=== PATIENT | male | born 1965 | race Caucasian/White ===

== ENCOUNTER 2019-07-27 12:51 | Emergency (ER) | payer OTHER ==
[2019-07-27 13:08] VITALS: BP 114/73; PULSE 82; TEMP 98; BMI 32.5
[2019-07-27 15:56] LABS: BASO % 0.5 % (0-2.0); EOS % 1.7 % (0-4.5); HEMOGLOBIN 11.1 GM/dL (11.7-16.9); LYMPH % 13.5 % (8-40); MCH 29.8 pg (25.7-33.7); MCHC 33.6 g/dl (32.0-35.9); MEAN CELL VOLUME 88.8 fl (80-96); MEAN PLT VOLUME 8.1 fl (7.5-11.1); MONO % 8.4 % (3.8-10.2); NEUT % 75.9 % (42.8-82.8); PLATELET COUNT 224 K/MM3 (134-434); RBC 3.71 M/mm3 (4.00-5.60); RDW 12.9 % (11.9-15.9); WHITE BLOOD COUNT 9.8 K/mm3 (4.0-10.0)
[2019-07-27 16:21] LABS: ALBUMIN 3.3 g/dl (3.4-5.0); BILIRUBIN,TOTAL 0.4 mg/dL (0.2-1); BLOOD UREA NITROGEN 24.9 mg/dL (7-18); CALCIUM 8.7 mg/dL (8.5-10.1); POTASSIUM 3.8 mmol/L (3.5-5.1); TOT PROT 6.6 g/dl (6.4-8.2)
== END 2019-07-27 13:15 | disposition left against medical advice (07) ==
LOC: JER 12:51
DX: Z53.21 Procedure and treatment not carried out due to patient leaving prior to being seen by health care provider (principal)
CPT/HCPCS: 36415; 80053; 83605; 85025; 87040; 99281-25; G0463-25

== ENCOUNTER 2019-12-03 07:16 | Day surgery (SDC) | payer OTHER ==
[2019-12-02 15:51] VITALS: BMI 33.6
[2019-12-03] MEDS ORDERED: HEPARIN NA (PORCINE) 5,000 UNITS/ML 1ML VIAL ONE (08:41)
[2019-12-03] MEDS ORDERED: LIDOCAINE HCL 1%, 10 MG/ML (20ML VIAL) ONE (08:42)
[2019-12-03] MEDS ORDERED: MIDAZOLAM HCL 2 MG/2 ML SINGLE DOSE VIAL ONE ×2 (08:58)
[2019-12-03] MEDS ORDERED: PROPOFOL 20 ML ONE (08:58)
[2019-12-03] MEDS ORDERED: SUCCINYLCHOLINE CHLORIDE 200 MG/10 ML SYRINGE ONE (08:58)
--- NOTE | 2019-12-03 09:25 | HP ---
Admitting History and Physical - Admission Chief Complaint: Right lower extremity claudication less than two blocks Limitations to Obtaining History: No Limitations - Advance Directives Advance Directives: Yes: Living Will, Health Care Proxy - Smoking History Smoking history: Current every day smoker Have you smoked in the past 12 months: Yes Aproximately how many cigarettes per day: 20 - Alcohol/Substance Use Hx Alcohol Use: No Home Medications - Allergies Allergies/Adverse Reactions: Allergies Allergy/AdvReac Type Severity Reaction Status Date / Time No Known Allergies Allergy Verified 12/03/19 08:07 - Home Medications Home Medications: Ambulatory Orders Amlodipine Besylate 1 tab PO DAILY 11/23/19 Aspirin [ASA -] 81 mg PO DAILY 11/23/19 Atenolol [Tenormin -] 50 mg PO DAILY 11/23/19 Atorvastatin Ca [Lipitor] 80 mg PO DAILY 11/23/19 Diazepam [Valium] 10 mg PO Q4H 11/23/19 Dulaglutide [Trulicity] 0.5 ml SQ WEEKLY 11/23/19 Duloxetine HCl [Cymbalta -] 90 mg PO DAILY 11/23/19 Furosemide [Lasix -] 20 mg PO DAILY PRN 11/23/19 Insulin Degludec [Tresiba Flextouch U-200] 26 unit SQ DAILY 11/23/19 Lisinopril/Hydrochlorothiazide [Lisinopril-Hctz 20-25 mg Tab] 1 tab PO DAILY Morphine Sulfate 10 mg PO BID 11/23/19 Oxycodone HCl/Acetaminophen [Percocet 5-325 mg Tablet] 1 tab PO Q6H 11/23/19 Potassium Chloride 1 tab PO DAILY 11/23/19 Tadalafil [Cialis] 20 mg PO HS 11/23/19 Zolpidem Tartrate 10 mg PO HS PRN 11/23/19 metFORMIN HCL [Metformin HCl ER] 2 tab PO BID 11/23/19 Review of Systems - Review of Systems Constitutional: reports: No Symptoms Eyes: reports: No Symptoms HENT: reports: No Symptoms Neck: reports: No Symptoms Cardiovascular: reports: No Symptoms Respiratory: reports: No Symptoms Gastrointestinal: reports: No Symptoms Genitourinary: reports: No Symptoms Musculoskeletal: reports: No Symptoms Integumentary: reports: No Symptoms Neurological: reports: No Symptoms Endocrine: reports: No Symptoms Hematology/Lymphatic: reports: No Symptoms Psychiatric: reports: No Symptoms Physical Examination Vital Signs: Vital Signs Temperature 98.0 F 12/03/19 07:48 Pulse Rate 70 12/03/19 07:48 Respiratory Rate 16 12/03/19 07:48 Blood Pressure 123/66 12/03/19 07:48 O2 Sat by Pulse Oximetry (%) 100 12/03/19 07:48 Constitutional: Yes: Well Nourished, No Distress, Calm Eyes: Yes: WNL, Conjunctiva Clear, EOM Intact HENT: Yes: WNL, Atraumatic, Normocephalic Neck: Yes: WNL, Supple, Trachea Midline Cardiovascular: Yes: WNL, Regular Rate and Rhythm Respiratory: Yes: WNL, Regular, CTA Bilaterally Gastrointestinal: Yes: WNL, Normal Bowel Sounds Musculoskeletal: Yes: WNL Extremities: Yes: WNL Edema: No Peripheral Pulses WNL: No Integumentary: Yes: WNL Neurological: Yes: WNL, Alert, Oriented ...Motor Strength: WNL Psychiatric: Yes: WNL Problem List - Problems (1) Claudication of right lower extremity Assessment/Plan: for angiogram today Code(s): I73.9 - PERIPHERAL VASCULAR DISEASE, UNSPECIFIED
[2019-12-03] MEDS ORDERED: ceFAZolin SODIUM 1 GM VIAL IVPB ONE (09:40)
[2019-12-03] MEDS ORDERED: LIDOCAINE HCL 1%, 10 MG/ML (20ML VIAL) INF ONE ×2 (09:43)
--- NOTE | 2019-12-03 10:24 | OP ---
Operative Note - Note: Operative Date: 12/03/19 Pre-Operative Diagnosis: RLE claudication Operation: Aortogram, RLE angiogram, SFA atherectomy, angioplasty, stent placement. Findings: SFA 95% stenosis Post-Operative Diagnosis: Same as Pre-op Surgeon: Myke Pepe Anesthesia: Fractional Estimated Blood Loss (mls): 50 Operative Report Dictated: Yes
[2019-12-03] MEDS ORDERED: CLOPIDOGREL BISULFATE 75 MG TABLET (FP) PO ONE ×2 (10:26→10:47)
[2019-12-03] MEDS ORDERED: PROMETHAZINE HCL 25 MG/1 ML VIAL IVPUSH PRN (10:33)
[2019-12-03] MEDS ORDERED: ONDANSETRON 4 MG/2 ML VIAL IVPUSH PRN (10:33)
[2019-12-03] MEDS ORDERED: oxyCODONE HCL 5 MG TABLET PO PRN (10:33)
[2019-12-03] MEDS ORDERED: LACTATED RINGERS SOLUTION 1,000 ML IV SCH (10:45)
[2019-12-03 11:58] VITALS: TEMP 97.8
[2019-12-03 12:55] VITALS: BP 132/70; PULSE 72
--- NOTE | 2019-12-16 17:20 | OP ---
DATE OF OPERATION: 12/03/2019 PREOPERATIVE DIAGNOSIS: Right lower extremity claudication. POSTOPERATIVE DIAGNOSIS: Right lower extremity claudication. PROCEDURE PERFORMED: Aortogram, right lower extremity angiogram, superficial femoral artery atherectomy, angioplasty and stent placement. FINDINGS: SFA 95% stenosis. SURGEON: Myke Carl DO ANESTHESIA: Fractional. BLOOD LOSS: 50 mL. INDICATIONS: Patient is a 54-year-old male who has right lower extremity claudication, less than 1 block. Preoperative ultrasound showed that he has severe disease in his distal SFA, almost nearly occluded. DESCRIPTION OF PROCEDURE: The patient had medical and cardiology clearance performed, and the patient then came in to Ambulatory Surgery. The patient was consented for the procedure, understanding all risks, benefits and alternatives. He was then taken to the operating room. Once in the operating room, the patient was laid on the operating table in the supine manner. The areas of the left and right groin were prepped and draped in a sterile surgical manner. We then injected 10 mL of lidocaine 1% over the left common femoral artery. We then took our Micropuncture needle up to the level of the common femoral artery. Micropuncture wire was inserted. Micropuncture sheath was inserted and an additional 5-Bhutanese sheath was inserted. We then placed a 0.035 floppy guidewire up into the aorta, followed by an Omni Flush catheter. We then shot an aortogram via hand injection, showing that aorta and iliac arteries were without disease. We then used an 0.035 floppy guidewire and brought it up and over to the right common femoral artery, and our Omni Flush catheter followed. We then shot a right lower extremity angiogram, showing that the common femoral artery, the profunda, and proximal and mid SFA were patent, but the distal SFA had a severe 95% stenosis. The popliteal artery was patent and the patient had 2-vessel runoff going into the foot in the form of AT and PT. At this point we placed a 0.035 stiff guidewire into the SFA. We removed the Omni Flush catheter. We went head and placed a 6 x 45 crossover sheath and 5000 units of IV heparin was administered to the patient, We then used a 0.035 floppy guidewire and brought it down to the stenosis. We were able to cross the lesion using a Quick-Cross catheter. We then exchanged the wire for a ViperWire. We then used CSI orbital atherectomy device and performed orbital atherectomy across our SFA stenosis. Completion angiogram showed that the SFA was now patent, but there was still severe stenosis. We then went ahead and used a 5 x 4 Ultraverse balloon and angioplasty of the SFA was performed. Completion angiogram now showed that the SFA was patent, but there was still a flow-limiting lesion. We went ahead and placed a 6 x 4 LifeStent in the area and ballooned it in place using a 6 x 4 Ultraverse balloon. Completion angiogram now showed that the SFA was patent. There was good brisk flow that was not flow-limiting, and there was good flow all the way into the foot. At this point we brought our sheath up and over. A StarClose device was successfully deployed in the left common femoral artery. Pressure was held for 5 minutes. Afterwards there was no bleeding. The area was wet and dried, and Dermabond was placed. The patient tolerated the procedure with no complication. The patient was transferred to the PACU in stable condition. MYKE CARL DO [id number]
== END 2019-12-03 12:15 | disposition home or self-care (01) ==
LOC: JASU-SURG 07:16
PROVIDERS: ATTEND Surgery Vascular Surgery
PROC: 047K3DZ Dilation of Right Femoral Artery with Intraluminal Device, Percutaneous Approach (ICD-10-PCS; principal; 2019-12-03 09:00)
DX: I70.211 Atherosclerosis of native arteries of extremities with intermittent claudication, right leg (principal)
CPT/HCPCS: 37227; C1877; 76000-TC-FY; 82962; 94760; J1644

== ENCOUNTER 2020-05-19 19:20 | Inpatient (IN) | payer OTHER ==
--- NOTE | 2020-05-19 19:29 | PDOC ---
Rapid Medical Evaluation Time Seen by Provider: 05/19/20 19:27 Medical Evaluation: Allergies Allergy/AdvReac Type Severity Reaction Status Date / Time No Known Allergies Allergy Verified 04/28/20 10:42 05/19/20 19:27 I have performed a brief in-person evaluation of this patient. CC: sent by podiatry for admission for abscess/cellulitis PE: deferred to ED provider- pt request Orders: labs, ekg, cxr Patient will proceed to ED for further evaluation. Discharge Disposition - Diagnosis Wound of foot - Referrals - Patient Instructions - Post Discharge Activity
[2020-05-19 19:36] VITALS: BMI 34.8
--- NOTE | 2020-05-19 20:35 | PDOC ---
History of Present Illness - General Chief Complaint: Wound Stated Complaint: WOUND ON RT FOOT Time Seen by Provider: 05/19/20 19:27 - History of Present Illness Initial Comments: 05/19/20 20:34 HPI: This is a 55 y/o male with a PMH of DM, PAD s/p stent, HTN, diabetic neuropathy, doing wound care once a week who was sent in by podiatry Dr. Spencer for wound infection/cellulitis on right foot. He reports that he has been having increased pain, redness, and discharge for the past two days. He saw wound-care today who recommended admission. He denies any systemic symptoms. Denies fever, chills, nausea, or vomiting. ROS: GENERAL/CONSTITUTIONAL: No fever/chills. No weakness. HEAD, EYES, EARS, NOSE AND THROAT: No change in vision. No sore throat. CARDIOVASCULAR: No chest pain or shortness of breath. RESPIRATORY: No cough, wheezing, or hemoptysis. GASTROINTESTINAL: No nausea, vomiting, diarrhea or constipation. GENITOURINARY: No dysuria, frequency, MUSCULOSKELETAL: No joint or muscle swelling or pain. No neck or back pain. SKIN: Yes wound and erythema on plantar surface of right foot NEUROLOGIC: No headache, loss of consciousness ENDOCRINE: No increased thirst. No abnormal weight change. HEMATOLOGIC/LYMPHATIC: No anemia, easy bleeding, or history of blood clots. ALLERGIC/IMMUNOLOGIC: No hives or skin allergy. PMH: NIDDM, HTN, PAD s/p stent, PAD, chronic diabetic ulcers Social Hx: 1ppd x 30 yrs, Denies Etoh, Medical marijuana Meds: See nurse note Allergies: Denied PCP: Dr. Murillo Vasc: Dr. Pepe PE: GENERAL: Awake, alert, and fully oriented, in no acute distress. Patient sitting comfortably in bed with girlfriend in room. Conversing normally. HEAD: No signs of trauma EYES: PERRLA, EOMI ENT: Hearing grossly normal. Moist mucosa NECK: Normal ROM, supple LUNGS: Breath sounds equal, wheezing bilaterally. HEART: Regular rate and rhythm, normal S1 and S2 ABDOMEN: Soft, nontender, normoactive bowel sounds. No guarding, no rebound. No masses EXTREMITIES: Normal range of motion. Right leg and foot edematous and erythematous. No active discharge. Tender to palpation. NEUROLOGICAL: Cranial nerves II through XII grossly intact. Normal speech. Dec reased sensation on plantar aspect of right foot. MDM: This is a 55 y/o male with a PMH of DM, PAD s/p stent, HTN, diabetic neuropathy, doing wound care once a week who was sent in by podiatry Dr. Spencer for wound infection/cellulitis on right foot. Patient appears comfortable without any systemic signs of infection. r. foot abscess and cellulitis r/o osteomyelitis admit for abx - CBC - CMP - EKG - CXR - XR r. foot - abx - admit CBC WBC 12.5 K/mm3 (4.0-10.0) H 05/19/20 21: RBC 3.19 M/mm3 (4.00-5.60) L 05/19/20: Hgb 9.5 GM/dL (11.7-16.9) L 05/19/20 21: Hct 27.8 % (35.4-49) L D 05/19/20: MCV 87.1 fl (80-96) 05/19/20 21: MCH 29.9 pg (25.7-33.7) 05/19/20: MCHC 34.4 g/dl (32.0-35.9) 05/19/20: RDW 13.3 % (11.9-15.9) 05/19/20 21: Plt Count 264 K/MM3 (134-434) 05/19/20: MPV 7.7 fl (7.5-11.1) 05/19/20: Absolute Neuts (auto) 10.0 K/mm3 (1.5-8.0) H 05/19/20 21: Neutrophils % 79.5 % (42.8-82.8) 05/19/20: Lymphocytes % 8.9 % (8-40) D 05/19/20: Monocytes % 9.6 % (3.8-10.2) 05/19/20: Eosinophils % 1.2 % (0-4.5) 05/19/20: Basophils % 0.8 % (0-2.0) 05/19/20: Nucleated RBC % 0 % (0-0) 07/16/20 21:29 ESR 115 mm/hr (0-20) H 05/19/20 21:29 Mild leuklocytosis at 12.5, hgb decreased at 9.5 CMP Sodium 131 mmol/L (136-145) L 05/19/20 21:29 Potassium 4.3 mmol/L (3.5-5.1) 05/19/20 21: Chloride 96 mmol/L (98-107) L 05/19/20 21:29 Carbon Dioxide 26 mmol/L (21-32) 05/19/20 21:29 Anion Gap 9 MMOL/L (8-16) 05/19/20 21:29 BUN 20.4 mg/dL (7-18) H 05/19/20 21: Creatinine 1.1 mg/dL (0.55-1.3) 05/19/20 21:29 Est GFR (CKD-EPI)AfAm 85.91 05/19/20 21: Est GFR (CKD-EPI)NonAf 74.12 05/19/20 21: Random Glucose 115 mg/dL (74-106) H 05/19/20 21:29 Calcium 8.8 mg/dL (8.5-10.1) 05/19/20 21: Total Bilirubin 0.6 mg/dL (0.2-1) 05/19/20 21:29 AST 28 U/L (15-37) 05/19/20 21:29 ALT 20 U/L (13-61) 05/19/20 21:29 Alkaline Phosphatase 75 U/L (45-117) 05/19/20 21:29 Total Protein 6.6 g/dl (6.4-8.2) 05/19/20 21:29 Albumin 2.7 g/dl (3.4-5.0) L 05/19/20 21:29 Hyponatremic at 131 Kidney function wnl - Will give 1 dose Vancomycin and Zosyn in E.D. Admission for management and abx Past History - Medical History Allergies/Adverse Reactions: Allergies Allergy/AdvReac Type Severity Reaction Status Date / Time No Known Allergies Allergy Verified 05/19/20 22:06 Home Medications: Ambulatory Orders Amlodipine Besylate 10 mg PO DAILY 11/23/19 Aspirin [ASA -] 81 mg PO DAILY 11/23/19 Atenolol [Tenormin -] 50 mg PO DAILY 11/23/19 Atorvastatin Ca [Lipitor] 80 mg PO DAILY 11/23/19 Diazepam [Valium] 10 mg PO Q4H PRN 11/23/19 Dulaglutide [Trulicity] 0.5 ml SQ WEEKLY 11/23/19 Duloxetine HCl [Cymbalta -] 90 mg PO DAILY 11/23/19 Furosemide [Lasix -] 20 mg PO DAILY PRN 11/23/19 Insulin Degludec [Tresiba Flextouch U-200] 14 unit SQ DAILY 11/23/19 Lisinopril/Hydrochlorothiazide [Lisinopril-Hctz 20-25 mg Tab] 1 tab PO DAILY 11/23/19 Morphine Sulfate 10 mg PO BID 11/23/19 Potassium Chloride 1 tab PO DAILY 11/23/19 Tadalafil [Cialis] 20 mg PO HS PRN 11/23/19 Zolpidem Tartrate 10 mg PO HS PRN 11/23/19 metFORMIN HCL [Metformin HCl ER] 2 tab PO DAILY 11/23/19 Clopidogrel Bisulfate [Plavix -] 75 mg PO DAILY 12/31/19 Gabapentin 400 mg PO DAILY 12/31/19 Cyclobenzaprine HCl [Flexeril -] 10 mg PO BID 05/20/20 L.acidoph,Paracasei, B.lactis [Probiotic] 1 each PO DAILY 05/20/20 Multivitamin [Multivitamins] 1 each PO DAILY 05/20/20 Oxycodone HCl/Acetaminophen [Endocet 7.5-325 mg Tablet] 1 each PO Q6H 05/20/20 Tamsulosin HCl [Flomax] 0.4 mg PO HS 05/20/20 Anemia: No Asthma: No Cancer: No Cardiac Disorders: No CVA: No COPD: No CHF: No Dementia: No Diabetes: Yes (2007 OR 2008) GI Disorders: No Disorders: No HTN: Yes Hypercholesterolemia: Yes Liver Disease: No Seizures: No Thyroid Disease: No - Surgical History Abdominal Surgery: No Appendectomy: No Cardiac Surgery: No Cholecystectomy: No Lung Surgery: No Neurologic Surgery: Yes (cervical disc sx5) Orthopedic Surgery: No - Immunization History Immunization Up to Date: Yes - Psycho-Social/Smoking History Smoking History: Never smoked Have you smoked in the past 12 months: No Number of Cigarettes Smoked Daily: 20 If you are a former smoker, when did you quit?: 2019 - Substance Abuse Hx (Audit-C & DAST Scrn) How often the patient has a drink containing alcohol: Never Score: In Men: 4 or > Positive; In Women: 3 or > Positive: 0 Screen Result (Pos requires Nsg. Audit-10AR): Negative In the last yr the pt used illegal drug/Rx for NonMed reason: No Score: Yes response is considered Positive: 0 Screen Result (Positive result requires Nsg. DAST-10): Negative *Physical Exam - Vital Signs Last Vital Signs Temp Pulse Resp BP Pulse Ox 98.6 F 95 H 19 142/67 97 05/19/20 19:28 05/19/20 19:28 05/19/20 19:28 05/19/20 19:28 05/19/20 19:28 ED Treatment Course - LABORATORY CBC & Chemistry Diagram: 05/20/20 06:53 05/20/20 06:53 Discharge - Discharge Information Problems reviewed: Yes Clinical Impression/Diagnosis: Wound of foot, Cellulitis and abscess of foot Condition: Stable - Admission Yes - Follow up/Referral - Patient Discharge Instructions - Post Discharge Activity
--- NOTE | 2020-05-19 21:26 | PDOC ---
Attending Attestation - Resident Resident Name: Cj Riley - ED Attending Attestation I have performed the following: I have examined & evaluated the patient, The case was reviewed & discussed with the resident, I agree w/resident's findings & plan, Exceptions are as noted - HPI HPI: 05/20/20 02:08 See resident HPI - Physicial Exam PE: 05/20/20 02:08 Agree with documented exam - Medical Decision Making 05/20/20 02:08 Diabetic foot ulcers, sent by wound care for parenteral tx of infection f/u labs, cxr, R foot xr start vanc/zosyn admit for continued care Discharge - Discharge Information Problems reviewed: Yes Clinical Impression/Diagnosis: Wound of foot, Cellulitis and abscess of foot Condition: Stable - Follow up/Referral - Patient Discharge Instructions - Post Discharge Activity
[2020-05-19 21:49] LABS: BASO % 0.8 % (0-2.0); EOS % 1.2 % (0-4.5); HEMATOCRIT 27.8 % (35.4-49); HEMOGLOBIN 9.5 GM/dL (11.7-16.9); LYMPH % 8.9 % (8-40); MCH 29.9 pg (25.7-33.7); MCHC 34.4 g/dl (32.0-35.9); MEAN CELL VOLUME 87.1 fl (80-96); MEAN PLT VOLUME 7.7 fl (7.5-11.1); MONO % 9.6 % (3.8-10.2); NEUT % 79.5 % (42.8-82.8); PLATELET COUNT 264 K/MM3 (134-434); RBC 3.19 M/mm3 (4.00-5.60); RDW 13.3 % (11.9-15.9); WHITE BLOOD COUNT 12.5 K/mm3 (4.0-10.0)
[2020-05-19 22:00] LABS: ALBUMIN 2.7 g/dl (3.4-5.0); BILIRUBIN,TOTAL 0.6 mg/dL (0.2-1); BLOOD UREA NITROGEN 20.4 mg/dL (7-18); CALCIUM 8.8 mg/dL (8.5-10.1); CREATININE 1.1 mg/dL (0.55-1.3); POTASSIUM 4.3 mmol/L (3.5-5.1); TOT PROT 6.6 g/dl (6.4-8.2)
[2020-05-19 23:13] LABS: EPI CELLS 29 /uL (0-25.1); HYALINE CASTS 0 /uL (0-3.1); URINE APPEARANCE CLEAR; URINE BACTERIA 32 /uL (0-1359); URINE BILIRUBIN NEGATIVE (NEGATIVE); URINE COLOR YELLOW; URINE GLUCOSE (UA) NEGATIVE (NEGATIVE); URINE KETONE NEGATIVE (NEGATIVE); URINE LEUK ESTERASE TRACE (NEGATIVE); URINE NITRITE NEGATIVE (NEGATIVE); URINE PROTEIN 2+ (NEGATIVE); URINE RBC 65 /uL (0-23.9); URINE UROBILINOGEN 0.2 mg/dL (0.2-1.0); URINE WBC 69 /uL (0-25.8)
[2020-05-19] MEDS ORDERED: VANCOMYCIN HCL 1,750 MG in DEXTROSE 5%-WATER - 500 ML IVPB ONE (23:21)
[2020-05-19] MEDS ORDERED: PIPERACILLIN/TAZOB 3.375 GM 3.375 GM in DEXTROSE 5%-WATER - 50 ML IVPB ONE (23:22)
[2020-05-19] MEDS ORDERED: SODIUM CHLORIDE 0.9% 500 ML INFUS.BAG IV ONE (23:23)
[2020-05-19] MEDS ORDERED: PIPERACILLIN/TAZOB 3.375 GM 3.375 GM/50 ML BAG IVPB ONE (23:39)
--- NOTE | 2020-05-19 23:42 | HP ---
Admitting History and Physical - Primary Care Physician PCP: Liborio Murillo E - Admission Chief Complaint: Diabetic Wound with increased Redness and Swelling History of Present Illness: This is a 55 y/o male with a significant medical history of DM, PAD s/p stent, HTN, HLD, Diabetic Neuropathy. 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 Cantu for wound infection/cellulitis on right foot. Patient reports having increased pain, erythema, and discharge x two days. He reports being at wound care today. Patient denies fever, chills, cough, SOB, [place], dizziness, CP, palpitations, AP, N/V/D, constipation, melena, dysuria. 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: Peripheral Neuropathy (Diabetic) Cardiovascular: Yes: HTN, Other (PAD) Endocrine: Yes: Diabetes Mellitus Dermatology: Yes: Other (Diabetic Ulcers) - Past Surgical History Past Surgical History: Yes: Stent (PAD) - Smoking History Smoking history: Former smoker Have you smoked in the past 12 months: No Aproximately how many cigarettes per day: 20 (1 PPD x30 yrs) If you are a former smoker, when did you quit?: 2019 - Alcohol/Substance Use Hx Alcohol Use: No History of Substance Use: reports: Marijuana (Medical) - Social History Usual Living Arrangement: Yes: Alone ADL: Independent History of Recent Travel: No Home Medications - Allergies Allergies/Adverse Reactions: Allergies Allergy/AdvReac Type Severity Reaction Status Date / Time No Known Allergies Allergy Verified 05/19/20 22:06 - Home Medications Home Medications: Ambulatory Orders Amlodipine Besylate 10 mg PO DAILY 11/23/19 Aspirin [ASA -] 81 mg PO DAILY 11/23/19 Atenolol [Tenormin -] 50 mg PO DAILY 11/23/19 Atorvastatin Ca [Lipitor] 80 mg PO DAILY 11/23/19 Diazepam [Valium] 10 mg PO Q4H PRN 11/23/19 Dulaglutide [Trulicity] 0.5 ml SQ WEEKLY 11/23/19 Duloxetine HCl [Cymbalta -] 90 mg PO DAILY 11/23/19 Furosemide [Lasix -] 20 mg PO DAILY PRN 11/23/19 Insulin Degludec [Tresiba Flextouch U-200] 14 unit SQ DAILY 11/23/19 Lisinopril/Hydrochlorothiazide [Lisinopril-Hctz 20-25 mg Tab] 1 tab PO DAILY 11/23/19 Morphine Sulfate 10 mg PO BID 11/23/19 Potassium Chloride 1 tab PO DAILY 11/23/19 Tadalafil [Cialis] 20 mg PO HS PRN 11/23/19 Zolpidem Tartrate 10 mg PO HS PRN 11/23/19 metFORMIN HCL [Metformin HCl ER] 2 tab PO DAILY 11/23/19 Clopidogrel Bisulfate [Plavix -] 75 mg PO DAILY 12/31/19 Gabapentin 400 mg PO DAILY 12/31/19 Cyclobenzaprine HCl [Flexeril -] 10 mg PO BID 05/20/20 L.acidoph,Paracasei, B.lactis [Probiotic] 1 each PO DAILY 05/20/20 Multivitamin [Multivitamins] 1 each PO DAILY 05/20/20 Oxycodone HCl/Acetaminophen [Endocet 7.5-325 mg Tablet] 1 each PO Q6H 05/20/20 Tamsulosin HCl [Flomax] 0.4 mg PO HS 05/20/20 Family Medical History Family History: Unable to Obtain Review of Systems - Review of Systems Constitutional: reports: No Symptoms Eyes: reports: No Symptoms HENT: reports: No Symptoms Neck: reports: No Symptoms Cardiovascular: reports: No Symptoms Respiratory: reports: No Symptoms Gastrointestinal: reports: No Symptoms Genitourinary: reports: No Symptoms Breasts: reports: No Symptoms Reported Musculoskeletal: reports: Extremity Pain Integumentary: reports: Lesions (b/l feet), Wound Neurological: reports: No Symptoms Endocrine: reports: No Symptoms Hematology/Lymphatic: reports: No Symptoms Physical Examination Vital Signs: Vital Signs Temperature 98.6 F 05/19/20 19:28 Pulse Rate 95 H 05/19/20 19:28 Respiratory Rate 05/19/20 19:28 Blood Pressure 142/67 05/19/20 19:28 O2 Sat by Pulse Oximetry (%) 97 05/19/20 22:48 Constitutional: Yes: Well Nourished, Mild Distress, Obese Eyes: Yes: WNL, Conjunctiva Clear, EOM Intact, PERRL HENT: Yes: WNL, Atraumatic, Normocephalic Neck: Yes: WNL, Supple, Trachea Midline Cardiovascular: Yes: Regular Rate and Rhythm, S1, S2 Respiratory: Yes: Diminished (bases) Gastrointestinal: Yes: Normal Bowel Sounds, Soft, Abdomen, Obese ...Rectal Exam: Yes: Deferred Renal/: Yes: WNL Breast(s): Yes: WNL Musculoskeletal: Yes: WNL Extremities: Yes: WNL Edema: No Peripheral Pulses WNL: Yes Wound/Incision: Yes: Open to air (left foot ventral aspect), Dressing Dry and Intact (right foot (unable to assess further- pt refused)), Reddened. No: Draining Neurological: Yes: WNL, Alert, Oriented ...Motor Strength: WNL Psychiatric: Yes: WNL, Alert, Oriented Labs: CBC, BMP 05/19/20 21:29 05/19/20 21:29 Laboratory Results - last 24 hr 05/19/20 05/19/20 05/19/20 21:29 21:29 23:00 WBC 12.5 H RBC 3.19 L Hgb 9.5 L Hct 27.8 L D MCV 87.1 MCH 29.9 MCHC 34.4 RDW 13.3 Plt Count 264 MPV 7.7 Absolute Neuts (auto) 10.0 H Neutrophils % 79.5 Lymphocytes % 8.9 D Monocytes % 9.6 Eosinophils % 1.2 Basophils % 0.8 Nucleated RBC % 0 ESR 115 H Sodium 131 L Potassium 4.3 Chloride 96 L Carbon Dioxide 26 Anion Gap 9 BUN 20.4 H Creatinine 1.1 Est GFR (CKD-EPI)AfAm 85.91 Est GFR (CKD-EPI)NonAf 74.12 Random Glucose 115 H Calcium 8.8 Total Bilirubin 0.6 AST 28 ALT 20 Alkaline Phosphatase 75 Total Protein 6.6 Albumin 2.7 L Urine Color Yellow Urine Appearance Clear Urine pH 8.0 Ur Specific [place] 1.010 Urine Protein 2+ H Urine Glucose (UA) Negative Urine Ketones Negative Urine Blood 1+ H Urine Nitrite Negative Urine Bilirubin Negative Urine Urobilinogen 0.2 Ur Leukocyte Esterase Trace Urine WBC (Auto) 69 Urine RBC (Auto) 65 Urine Casts (Auto) 0 U Epithel Cells (Auto) 29 U Sm Round Cell (Auto) Negative Urine Bacteria (Auto) 32 Intake & Output 05/17/20 05/18/20 05/19/20 05/20/20 23:59 23:59 23:59 23:59 Intake Total 1550 Output Total 600 500 Balance -600 1050 Weight 116.573 kg [facility] Prescription Monitoring Program Registry Others' Prescriptions Patient Name: Chris Marcum Date: 1965 Address: [address] [place] [address] Sex: Male Rx Written Rx Dispensed Drug Quantity Days Supply Prescriber Name Payment Method Dispenser 03/16/2020 03/24/2020 morphine sulf er 15 mg tablet 60 30 Posecion, Scandia W F [facility] [employer] 03/16/2020 03/16/2020 oxycodone-acetaminophen 7.5-325 mg tablet 120 30 Posecion, Jagjit W F Insurance [facility] 02/16/2020 02/22/2020 morphine sulf er 15 mg tablet 60 30 Posecion, Jagjit W F [facility] 02/16/2020 02/16/2020 oxycodone-acetaminophen 7.5-325 mg tablet 120 30 Posecion, Scandia W F [facility] [employer] 01/15/2020 01/22/2020 morphine sulf er 15 mg tablet 60 30 Posecion, Scandia W F [facility] [employer] [facility] 01/15/2020 01/15/2020 oxycodone-acetaminophen 7.5-325 mg tablet 120 30 Posecion, Scandia W F [facility] [employer] 12/16/2019 12/24/2019 morphine sulf er 15 mg tablet 60 30 Pugni, Tierra CHARGE MASTER SPECIALIST-C [employer] [facility] [employer] 12/16/2019 12/17/2019 oxycodone-acetaminophen 5-325 mg tablet 120 30 Pugni, Tierra CHARGE MASTER SPECIALIST-C [employer] [facility] [employer] 11/17/2019 11/24/2019 morphine sulf er 15 mg tablet 60 30 Pugni, Tierra CHARGE MASTER SPECIALIST-C [employer] [facility] [employer] [facility] 11/17/2019 11/18/2019 oxycodone-acetaminophen 5-325 mg tab 120 30 Pugni, Tierra CHARGE MASTER SPECIALIST-C Insurance [facility] [employer] [facility] 10/19/2019 10/24/2019 morphine sulf er 15 mg tablet 60 30 Pugni, Tierra CHARGE MASTER SPECIALIST-C [employer] [facility] [employer] 10/19/2019 10/19/2019 oxycodone-acetaminophen 5-325 mg tab 120 30 Pugni, Tierra CHARGE MASTER SPECIALIST-C Insurance Value [employer] [facility] 07/17/2019 10/16/2019 zolpidem tartrate 10 mg tablet 15 25 Pugni, Tierra CHARGE MASTER SPECIALIST-C Insurance Value [facility] 09/23/2019 09/24/2019 morphine sulf er 15 mg tablet 60 30 Pugni, Tierra CHARGE MASTER SPECIALIST-C Insurance [facility] 09/17/2019 09/17/2019 oxycodone-acetaminophen 5-325 mg tab 120 30 Pugni, Tierra CHARGE MASTER SPECIALIST-C Insurance [facility] 07/17/2019 09/10/2019 zolpidem tartrate 10 mg tablet 15 25 Pugni, Tierra CHARGE MASTER SPECIALIST-C Insurance [facility] 08/24/2019 08/25/2019 morphine sulf er 15 mg tablet 60 30 Pugni, Tierra CHARGE MASTER SPECIALIST-C Insurance [facility] 07/17/2019 08/16/2019 zolpidem tartrate 10 mg tablet 15 25 Pugni, Tierra CHARGE MASTER SPECIALIST-C Insurance [facility] 08/14/2019 08/16/2019 oxycodone-acetaminophen 5-325 mg tab 120 30 Pugni, Tierra CHARGE MASTER SPECIALIST-C Insurance [facility] 07/17/2019 07/22/2019 morphine sulfate er 10 mg cap 60 30 Pugni, Tierra CHARGE MASTER SPECIALIST-C Insurance [facility] 07/17/2019 07/17/2019 oxycodone-acetaminophen 5-325 mg tablet 120 30 Pugni, Tierra CHARGE MASTER SPECIALIST-C Insurance [facility] 07/17/2019 07/17/2019 zolpidem tartrate 10 mg tablet 15 25 Pugni, Tierra CHARGE MASTER SPECIALIST-C Insurance Value [employer] [facility] 06/16/2019 06/22/2019 morphine sulfate er 10 mg cap 60 30 Pugni, Tierra CHARGE MASTER SPECIALIST-C Insurance [facility] 06/16/2019 06/17/2019 oxycodone-acetaminophen 5-325 mg tablet 120 30 Pugni, Tierra CHARGE MASTER SPECIALIST-C Insurance Value [employer] [facility] 04/20/2019 06/16/2019 forte xl high thc 2.8mg thc & less than 0.1mg cbd/inhalation 1 15 Nickolas Lutz, [employer] 05/26/2019 05/29/2019 diazepam 10 mg tablet 120 30 Liborio Murillo MD Insurance Value [facility] 05/18/2019 05/22/2019 morphine sulfate er 10 mg cap 60 30 Tierra Crouch CHARGE MASTER SPECIALIST-C Insurance [facility] [employer] [facility] - Results Chest X-ray: Pending X-ray: Pending EKG: Pending Problem List - Problems (1) Cellulitis Code(s): L03.90 - CELLULITIS, UNSPECIFIED (2) Diabetic foot infection Code(s): E11.628 - TYPE 2 DIABETES MELLITUS WITH OTHER SKIN COMPLICATIONS; L08.9 - LOCAL INFECTION OF THE SKIN AND SUBCUTANEOUS TISSUE, UNSP (3) Diabetes mellitus Code(s): E11.9 - TYPE 2 DIABETES MELLITUS WITHOUT COMPLICATIONS (4) Diabetic neuropathy Code(s): E11.40 - TYPE 2 DIABETES MELLITUS WITH DIABETIC NEUROPATHY, UNSP (5) HTN (hypertension) Code(s): I10 - ESSENTIAL (PRIMARY) HYPERTENSION (6) HLD (hyperlipidemia) Code(s): E78.5 - HYPERLIPIDEMIA, UNSPECIFIED (7) PAD (peripheral artery disease) Code(s): I73.9 - PERIPHERAL VASCULAR DISEASE, UNSPECIFIED (8) MARCOS (obstructive sleep apnea) Code(s): G47.33 - OBSTRUCTIVE SLEEP APNEA (ADULT) (PEDIATRIC) (9) BPH (benign prostatic hyperplasia) Code(s): N40.0 - BENIGN PROSTATIC HYPERPLASIA WITHOUT LOWER URINRY TRACT SYMP (10) Obesity (BMI 30.0-34.9) Code(s): E66.9 - OBESITY, UNSPECIFIED (11) Encounter for screening laboratory testing for COVID-19 virus Code(s): Z11.59 - ENCOUNTER FOR SCREENING FOR OTHER VIRAL DISEASES Assessment/Plan This is a 55 y/o male with a significant medical history of DM, PAD s/p stent, HTN, HLD, Diabetic Neuropathy. Admitted to M/S for Diabetic Wound, Cellulitis for further evaluation of their emergent condition. Problems: 1. Diabetic Foot Wounds 2. Cellulitis 3. Diabetes Mellitus 4. Diabetic Neuropathy 5. Hypertension 6. Hyperlipidemia 7. PAD 8. BPH 9. MARCOS 10. Obesity 11. Laboratory Screening for Covid-19 Infection Plan: 1. Diabetic Foot Wounds- +Leukocytosis, ESR elevated, non-draining, Appreciate Podiatry, Vascular, ID consults, Wound Care, Continue Vancomycin, Zosyn Monitor CBC, CMP, Monitor vitals, elevate extremity. Xray right foot r/o subcutaneous air. MRI of lower extremity 03/22/2020 report- Cellulitis, neg osteomyelitis or abscess. Patient refused removal of right foot dressing. 2. Cellulitis- continue ABX, appreciate ID consult, continue wound care, monitor CBC, monitor vitals, right foot xray-pending 3. Diabetes Mellitus- stable, BGMs, ISS, hold Metformin and Trulicity for now 4. Diabetic Neuropathy- stable, continue home med, neurovascular checks 5. Hypertension- stable, continue home meds, monitor renal function 6. Hyperlipidemia- stable, continue Lipitor, monitor LFTs 7. PAD- s/p stent, continue Plavix 8. BPH- stable, continue Flomax 9. MARCOS- CPAP HS settings: 08/08, monitor vitals 10. Obesity- counseled weight reduction, healthy lifestyle choices 11. Lab Screening for Covid-19 Infection- SMART-IS MANAGER: 0, low risk, COVID PCR- pending, Maintain Isolation Precautions FEN- PO fluids as tolerated, replete lytes prn, Diabetic, Low Na Diet DVT ppx- OOB, SCDs, Lovenox SQ Dispo: Requires Inpatient Care Visit type - Emergency Visit Emergency Visit: Yes ED Registration Date: 05/19/20 Care time: The patient presented to the Emergency Department on the above date and was hospitalized for further evaluation of their emergent condition. - New Patient This patient is new to me today: Yes Date on this admission: 05/19/20 - Critical Care Critical Care patient: No
[2020-05-20 01:37] LABS: ERYTHROCYTE SEDIMENTATION RATE 115 mm/hr (0-20)
[2020-05-20] MEDS ORDERED: traMADol HCL 50 MG TABLET PO ONE (02:34)
[2020-05-20 07:16] LABS: BASO % 0.5 % (0-2.0); EOS % 1.7 % (0-4.5); HEMATOCRIT 28.1 % (35.4-49); HEMOGLOBIN 9.5 GM/dL (11.7-16.9); LYMPH % 8.7 % (8-40); MCH 29.1 pg (25.7-33.7); MCHC 33.8 g/dl (32.0-35.9); MEAN CELL VOLUME 85.9 fl (80-96); MEAN PLT VOLUME 7.3 fl (7.5-11.1); MONO % 9.2 % (3.8-10.2); NEUT % 79.9 % (42.8-82.8); PLATELET COUNT 244 K/MM3 (134-434); RBC 3.27 M/mm3 (4.00-5.60); RDW 13.6 % (11.9-15.9); WHITE BLOOD COUNT 9.6 K/mm3 (4.0-10.0)
[2020-05-20] MEDS: INSULIN SLIDING SCALE (NOVOLOG) 1 VIAL SQ SCH ×4 (07:20→22:00)
[2020-05-20 07:49] LABS: ALBUMIN 2.5 g/dl (3.4-5.0); BILIRUBIN,TOTAL 0.8 mg/dL (0.2-1); BLOOD UREA NITROGEN 15.5 mg/dL (7-18); CALCIUM 8.2 mg/dL (8.5-10.1); CREATININE 0.9 mg/dL (0.55-1.3); POTASSIUM 3.9 mmol/L (3.5-5.1); TOT PROT 6.3 g/dl (6.4-8.2)
[2020-05-20] MEDS ORDERED: oxyCODONE HCL 10 MG SUSTAINED ACTING TABLET PO ONE (07:50)
[2020-05-20 09:45] LABS: ERYTHROCYTE SEDIMENTATION RATE 116 mm/hr (0-20)
--- NOTE | 2020-05-20 09:47 | CONSULT ---
Consult Consult Specialty:: Podiatry Reason for Consultation:: Chronic wound right foot sub met 5 with cellulitis and possible abscess. 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: Peripheral Neuropathy (Diabetic) Cardio/Vascular: Yes: HTN, Other (PAD) Endocrine: Yes: Diabetes Mellitus Dermatology: Yes: Other (Diabetic Ulcers) - Past Surgical History Past Surgical History: Yes: Stent (PAD) - Alcohol/Substance Use Hx Alcohol Use: No History of Substance Use: reports: Marijuana (Medical) - Smoking History Smoking history: Former smoker Have you smoked in the past 12 months: No Aproximately how many cigarettes per day: 20 (1 PPD x30 yrs) If you are a former smoker, when did you quit?: 2019 - Social History ADL: Independent History of Recent Travel: No Home Medications - Allergies Allergies/Adverse Reactions: Allergies Allergy/AdvReac Type Severity Reaction Status Date / Time No Known Allergies Allergy Verified 05/19/20 22:06 - Home Medications Home Medications: Ambulatory Orders Amlodipine Besylate 10 mg PO DAILY 11/23/19 Aspirin [ASA -] 81 mg PO DAILY 11/23/19 Atenolol [Tenormin -] 50 mg PO DAILY 11/23/19 Atorvastatin Ca [Lipitor] 80 mg PO DAILY 11/23/19 Diazepam [Valium] 10 mg PO Q4H PRN 11/23/19 Dulaglutide [Trulicity] 0.5 ml SQ WEEKLY 11/23/19 Duloxetine HCl [Cymbalta -] 90 mg PO DAILY 11/23/19 Furosemide [Lasix -] 20 mg PO DAILY PRN 11/23/19 Insulin Degludec [Tresiba Flextouch U-200] 14 unit SQ DAILY 11/23/19 Lisinopril/Hydrochlorothiazide [Lisinopril-Hctz 20-25 mg Tab] 1 tab PO DAILY 11/23/19 Morphine Sulfate 10 mg PO BID 11/23/19 Potassium Chloride 1 tab PO DAILY 11/23/19 Tadalafil [Cialis] 20 mg PO HS PRN 11/23/19 Zolpidem Tartrate 10 mg PO HS PRN 11/23/19 metFORMIN HCL [Metformin HCl ER] 2 tab PO DAILY 11/23/19 Clopidogrel Bisulfate [Plavix -] 75 mg PO DAILY 12/31/19 Gabapentin 400 mg PO DAILY 12/31/19 Cyclobenzaprine HCl [Flexeril -] 10 mg PO BID 05/20/20 L.acidoph,Paracasei, B.lactis [Probiotic] 1 each PO DAILY 05/20/20 Multivitamin [Multivitamins] 1 each PO DAILY 05/20/20 Oxycodone HCl/Acetaminophen [Endocet 7.5-325 mg Tablet] 1 each PO Q6H 05/20/20 Tamsulosin HCl [Flomax] 0.4 mg PO HS 05/20/20 Physical Exam Vital Signs: Vital Signs Temperature 99.2 F 05/20/20 04:40 Pulse Rate 101 H 05/20/20 04:40 Respiratory Rate 20 05/20/20 04:40 Blood Pressure 139/62 05/20/20 04:40 O2 Sat by Pulse Oximetry (%) 98 05/20/20 04:40 Wound/Incision: Yes: Other (+grade 3 wound submet 5, +cellulitis dorsally, - rosie drainage, r/o abscess) Labs: CBC, BMP 05/20/20 06:53 05/20/20 06:53 Assessment/Plan r/o om pvd? Cellulitis Grade 3 wound Santyl to wound daily. MRI ordered. Xray ordered. ID and vascular consulted. Will follow.
[2020-05-20] MEDS ORDERED: VANCOMYCIN 1 GRAM (PRE-DOCKED) 1,000 MG/250 ML BAG IVPB SCH (10:00)
[2020-05-20] MEDS ORDERED: PATIENT'S OWN MEDICATION (NON-FORMULARY) (Lisinopril/Hydrochlorothiazide [Lisinopril-Hctz PO SCH (10:00)
[2020-05-20] MEDS ORDERED: PIPERACILLIN/TAZOB 3.375 GM 3.375 GM in DEXTROSE 5%-WATER - 50 ML IVPB SCH (10:00)
[2020-05-20] MEDS ORDERED: PNEUMOC 13-VAL CONJ-DIP CRM/PF 0.5 ML DISP.SYRIN IM ONE (10:00)
[2020-05-20] MEDS: CLOPIDOGREL BISULFATE 75 MG TABLET (FP) PO SCH (10:22)
[2020-05-20] MEDS: MULTIVITAMINS (DAILY MVI) TABLET (FP) PO SCH (10:22)
[2020-05-20] MEDS: HEPARIN NA (PORCINE) 5,000 UNITS/ML 1ML VIAL SQ SCH ×2 (10:22→21:56)
[2020-05-20] MEDS: ASPIRIN 81 MG CHEWABLE TABLETS PO SCH (10:22)
[2020-05-20] MEDS: LISINOPRIL 20 MG TABLET (FP) PO SCH (10:22)
[2020-05-20] MEDS: TAMSULOSIN HCL 0.4 MG CAP PO SCH (10:22)
[2020-05-20] MEDS: amLODIPine BESYLATE 10 MG TABLET (FP) PO SCH (10:22)
--- NOTE | 2020-05-20 10:22 | EKG ---
Test Reason : Blood Pressure : / mmHG Vent. Rate : 087 BPM Atrial Rate : 087 BPM P-R Int : 148 ms QRS Dur : 072 ms QT Int : 336 ms P-R-T Axes : 042 033 051 degrees QTc Int : 404 ms NORMAL SINUS RHYTHM NORMAL ECG NO PREVIOUS ECGS AVAILABLE Confirmed by MITRA BOWSER MD ([id number]) on 05/20/2020 10:21:53 AM Referred By: Confirmed By:MITRA BOWSER MD
--- NOTE | 2020-05-20 10:34 | PN ---
Progress Note (short form) - Note Progress Note: Vascular Surgery Pt here for right foot cellulitis. pt seen at bedside. Cellulitis much better now with iv antibiotics. Palpable PT pulse. No need for vascular intervention. Myke Pepe DO
[2020-05-20] MEDS: oxyCODONE HCL 5 MG TABLET PO PRN ×2 (12:02→18:38)
[2020-05-20] MEDS: ACETAMINOPHEN 325 MG TABLET (FP) PO PRN ×2 (12:04→18:38)
[2020-05-20] MEDS: HYDROCHLOROTHIAZIDE 25 MG TABLET (FP) PO SCH (12:37)
[2020-05-20] MEDS: ATENOLOL 50 MG TABLET (FP) PO SCH (12:37)
[2020-05-20] MEDS: GABAPENTIN 400 MG CAPSULE PO SCH (12:37)
--- NOTE | 2020-05-20 13:55 | PN ---
Physical Exam: SUBJECTIVE: Patient seen and examined at bedside this morning. PAtient admitted overnight for RLE cellulitis. Patient reports pain of the RLE, but denies fever, chills, headache, chest pain, SOB, abdominal pain. OBJECTIVE: Vital Signs Temperature 98.6 F 05/20/20 10:00 Pulse Rate 79 05/20/20 10:00 Respiratory Rate 18 05/20/20 10:00 Blood Pressure 158/82 05/20/20 10:00 O2 Sat by Pulse Oximetry (%) 97 05/20/20 10:00 GENERAL: The patient is awake, alert, and fully oriented, in no acute distress. NECK: full range of motion, supple. LUNGS: Breath sounds equal, clear to auscultation bilaterally HEART: Regular rate and rhythm, S1, S2 ABDOMEN: Soft, nontender, nondistended, normoactive bowel sounds EXTREMITIES: palpable pulses, warm, well-perfused, no edema. RLE: +[id number] ulcer at the plantar side with surrounding erythema extending to the lateral and dorsum of right foot, no drainage NEUROLOGICAL: Cranial nerves II through XII grossly intact. Normal speech PSYCH: Normal mood, normal affect. SKIN: Warm, dry, normal turgor Laboratory Results - last 24 hr 05/19/20 05/19/20 05/19/20 21:29 21:29 23:00 WBC 12.5 H RBC 3.19 L Hgb 9.5 L Hct 27.8 L D MCV 87.1 MCH 29.9 MCHC 34.4 RDW 13.3 Plt Count 264 MPV 7.7 Absolute Neuts (auto) 10.0 H Neutrophils % 79.5 Lymphocytes % 8.9 D Monocytes % 9.6 Eosinophils % 1.2 Basophils % 0.8 Nucleated RBC % 0 ESR 115 H Sodium 131 L Potassium 4.3 Chloride 96 L Carbon Dioxide 26 Anion Gap 9 BUN 20.4 H Creatinine 1.1 Est GFR (CKD-EPI)AfAm 85.91 Est GFR (CKD-EPI)NonAf 74.12 POC Glucometer Random Glucose 115 H Calcium 8.8 Total Bilirubin 0.6 AST 28 ALT 20 Alkaline Phosphatase 75 C-Reactive Protein Total Protein 6.6 Albumin 2.7 L Triglycerides Cholesterol Total LDL Cholesterol HDL Cholesterol TSH Urine Color Yellow Urine Appearance Clear Urine pH 8.0 Ur Specific [place] 1.010 Urine Protein 2+ H Urine Glucose (UA) Negative Urine Ketones Negative Urine Blood 1+ H Urine Nitrite Negative Urine Bilirubin Negative Urine Urobilinogen 0.2 Ur Leukocyte Esterase Trace Urine WBC (Auto) 69 Urine RBC (Auto) 65 Urine Casts (Auto) 0 U Epithel Cells (Auto) 29 U Sm Round Cell (Auto) Negative Urine Bacteria (Auto) 32 05/20/20 05/20/20 05/20/20 06:53 06:53 07:03 WBC 9.6 RBC 3.27 L Hgb 9.5 L Hct 28.1 L MCV 85.9 MCH 29.1 MCHC 33.8 RDW 13.6 Plt Count 244 MPV 7.3 L Absolute Neuts (auto) 7.7 Neutrophils % 79.9 Lymphocytes % 8.7 Monocytes % 9.2 Eosinophils % 1.7 Basophils % 0.5 Nucleated RBC % 0 ESR 116 H Sodium 132 L Potassium 3.9 Chloride 99 Carbon Dioxide 27 Anion Gap 5 L BUN 15.5 Creatinine 0.9 Est GFR (CKD-EPI)AfAm 109.50 Est GFR (CKD-EPI)NonAf 94.48 POC Glucometer 109 Random Glucose 110 H Calcium 8.2 L Total Bilirubin 0.8 AST 15 ALT 18 Alkaline Phosphatase 75 C-Reactive Protein 9.6 H Total Protein 6.3 L Albumin 2.5 L Triglycerides 102 Cholesterol 115 Total LDL Cholesterol 65 HDL Cholesterol 30 L TSH 0.74 Urine Color Urine Appearance Urine pH Ur Specific [place] Urine Protein Urine Glucose (UA) Urine Ketones Urine Blood Urine Nitrite Urine Bilirubin Urine Urobilinogen Ur Leukocyte Esterase Urine WBC (Auto) Urine RBC (Auto) Urine Casts (Auto) U Epithel Cells (Auto) U Sm Round Cell (Auto) Urine Bacteria (Auto) 05/20/20 12:09 WBC RBC Hgb Hct MCV MCH MCHC RDW Plt Count MPV Absolute Neuts (auto) Neutrophils % Lymphocytes % Monocytes % Eosinophils % Basophils % Nucleated RBC % ESR Sodium Potassium Chloride Carbon Dioxide Anion Gap BUN Creatinine Est GFR (CKD-EPI)AfAm Est GFR (CKD-EPI)NonAf POC Glucometer 111 Random Glucose Calcium Total Bilirubin AST ALT Alkaline Phosphatase C-Reactive Protein Total Protein Albumin Triglycerides Cholesterol Total LDL Cholesterol HDL Cholesterol TSH Urine Color Urine Appearance Urine pH Ur Specific [place] Urine Protein Urine Glucose (UA) Urine Ketones Urine Blood Urine Nitrite Urine Bilirubin Urine Urobilinogen Ur Leukocyte Esterase Urine WBC (Auto) Urine RBC (Auto) Urine Casts (Auto) U Epithel Cells (Auto) U Sm Round Cell (Auto) Urine Bacteria (Auto) Active Medications Generic Name Dose Route Start Last Admin Trade Name Freq PRN Reason Stop Dose Admin Acetaminophen 325 mg 05/20/20 11:15 05/20/20 12:04 Tylenol - PO 325 mg Q6H PRN Administration PAIN SCALE 5-6 Amlodipine Besylate 10 mg 05/20/20 10:00 05/20/20 10:22 Norvasc - PO 10 mg DAILY [facility] Administration Aspirin 81 mg 05/20/20 10:00 05/20/20 10:22 Asa - PO 81 mg DAILY [facility] Administration Atenolol 50 mg 05/20/20 10:00 05/20/20 12:37 Tenormin - PO 50 mg DAILY [facility] Administration Atorvastatin Calcium 80 mg 05/20/20 22:00 Lipitor - PO HS [facility] Clopidogrel Bisulfate 75 mg 05/20/20 10:00 05/20/20 10:22 Plavix - PO 75 mg DAILY [facility] Administration Cyclobenzaprine HCl 10 mg 05/20/20 22:00 Flexeril - PO BID [facility] Duloxetine HCl 90 mg 05/21/20 10:00 Cymbalta - PO DAILY [facility] Gabapentin 400 mg 05/20/20 10:00 05/20/20 12:37 Neurontin - PO 400 mg DAILY [facility] Administration Heparin Sodium (Porcine) 5,000 unit 05/20/20 10:00 05/20/20 10:22 Heparin - SQ 5,000 unit BID [facility] Administration Hydrochlorothiazide 25 mg 05/20/20 10:00 05/20/20 12:37 Hctz - PO 25 mg DAILY [facility] Administration Piperacillin Sod/Tazobactam 50 mls @ 100 mls/hr 05/20/20 10:00 Sod 3.375 gm/ Dextrose IVPB Q8H-IV [facility] Protocol Vancomycin HCl 1,000 mg/ 250 mls @ 166.667 mls/hr 05/20/20 12:00 Dextrose IVPB Q12H [facility] Protocol Piperacillin Sod/Tazobactam 50 mls @ 100 mls/hr 05/20/20 10:00 05/20/20 10:21 Sod 3.375 gm/ Dextrose IVPB 05/21/20 02:29 100 mls/hr Q8H-IV [facility] Administration Protocol Vancomycin HCl 1,000 mg in 250 mls @ 166.667 mls/hr 05/20/20 10:00 05/20/20 10:21 Vancomycin (Pre-Docked) IVPB 05/21/20 03:29 166.667 mls/hr Q8H-IV [facility] Administration Protocol Insulin Aspart 1 vial 05/20/20 07:00 05/20/20 12:31 Novolog Vial Sliding Scale - SQ Not Given ACHS [facility] Protocol Lisinopril 20 mg 05/20/20 10:00 05/20/20 10:22 Prinivil PO 20 mg DAILY [facility] Administration Morphine Sulfate 2 mg 05/20/20 12:57 Morphine Sulfate IVPUSH Q6H PRN PAIN LEVEL 7 - 10 Multivitamins/Minerals/Vitamin C 1 tab 05/20/20 10:00 05/20/20 10:22 Tab-A-Vit - PO 1 tab DAILY [facility] Administration Non-Formulary Medication 1 each 05/21/20 10:00 L.Acidoph,Paracasei, B.Lactis [Probiotic] PO DAILY [facility] Oxycodone HCl 7.5 mg 05/20/20 11:56 05/20/20 12:02 Roxicodone - PO 7.5 mg Q6H PRN Administration PAIN SCALE 5-6 Pneumococcal 13-Valent Conj Vacc 0.5 ml 05/20/20 10:00 Prevnar 13 Syringe - IM 05/20/20 10:01 .ONCE ONE Tamsulosin HCl 0.4 mg 05/20/20 08:30 05/20/20 10:22 Flomax - PO 0.4 mg DAILY@0830 [facility] Administration Zolpidem Tartrate 10 mg 05/20/20 13:02 Ambien - PO HS PRN INSOMNIA ASSESSMENT/PLAN: Patient is a 55 y/o male with a significant medical history of DM, PAD s/p stent, HTN, HLD, Diabetic Neuropathy. 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 #RLE cellulitis -+Leukocytosis, ESR elevated, non-draining -Xray right foot r/o subcutaneous air. -MRI of lower extremity 03/22/2020 report- Cellulitis, neg osteomyelitis or abscess. -Continue VAncomycin and Zosyn -blood cultures pending -Podiatry (Dr. Cantu) consulted. Recommendations appreciated. -Vascular (Dr. Pepe) consulted. REcommendations appreciated. -palpable PT pulse. -no need for vascular intervention. -ID (Dr. figueroa) consulted. Recommendations appreciated. #DM -on home trulicity and metformin, will hold for now -Insulin sliding scale implemented -BGM ACHS #HTN -Continue home HCTZ 25 daily, Lisinopril 20mg daily, ATenolol 50mg daily #HLD -continue Lipitor 80mg HS #PAD s/p stent -on ASA and plavix #Diabetic neuropathy -Continue Gabapentin 400mg daily #FEN -Not on any standing fluids -Electrolytes wnl, routine bmp monitoring -Sodium restricted/diabetic diet #Prophylaxis -Heparin 5000u sq bid #Disposition -full code -med surg Visit type - Emergency Visit Emergency Visit: Yes ED Registration Date: 05/19/20 Care time: The patient presented to the Emergency Department on the above date and was hospitalized for further evaluation of their emergent condition. - New Patient This patient is new to me today: Yes Date on this admission: 05/20/20 - Critical Care Critical Care patient: No ATTENDING PHYSICIAN STATEMENT I saw and evaluated the patient. I reviewed the resident's note and discussed the case with the resident. I agree with the resident's findings and plan as documented. SUBJECTIVE: OBJECTIVE: ASSESSMENT AND PLAN:
[2020-05-20] MEDS: MORPHINE SULFATE 2 MG/ML VIAL IVPUSH PRN ×2 (14:14→23:33)
[2020-05-20] MEDS ORDERED: MORPHINE SULFATE 2 MG/ML VIAL IVPUSH ONE (17:20)
[2020-05-20] MEDS ORDERED: PIPERACILLIN/TAZOBACTAM 3.375 GM VIAL IVPB ONE (17:40)
[2020-05-20] MEDS ORDERED: DEXTROSE 5%-WATER - 50 ML IVPB ONE (17:41)
--- NOTE | 2020-05-20 17:41 | CON.ID ---
Consult - History of Present Illness History of Present Illness: 55 y.o. male with PMH of DM (last HgA1C -6) with peripheral neuropathy, PAD s/p RLE stent, HTN, MARCOS, BPH, and chronic Rt foot plantar ulcer was sent in from [facility] by Podiatry for RLE edema/erythema concerning for cellulitis. Pt states he noted swelling in his RLE the day before but does not feel pain. In the clinic yesterday noted to have some drainage from the plantar ulcer. Pt denies fever/chills/pain and has felt well otherwise. Previous MRI of foot 2 months ago without evidence of OM/abscess. In the ER, pt with temp of 99.2 and mild leukocytosis. Currently pt has noticeable swelling of RLE with erythema of the forefoot but without any drainage from the ulcer. Pt denies having any other specific complaints. - History Source History Provided By: Patient - Past Medical History HOME VISITOR: Yes: Peripheral Neuropathy (Diabetic) Cardio/Vascular: Yes: HTN, Other (PAD) Endocrine: Yes: Diabetes Mellitus Dermatology: Yes: Other (Diabetic Ulcers) - Past Surgical History Past Surgical History: Yes: Stent (PAD) - Alcohol/Substance Use Hx Alcohol Use: No History of Substance Use: reports: Marijuana (Medical) - Smoking History Smoking history: Never smoked Have you smoked in the past 12 months: No Aproximately how many cigarettes per day: 20 If you are a former smoker, when did you quit?: 2019 - Social History ADL: Independent History of Recent Travel: No Home Medications - Allergies Allergies/Adverse Reactions: Allergies Allergy/AdvReac Type Severity Reaction Status Date / Time No Known Allergies Allergy Verified 05/19/20 22:06 - Home Medications Home Medications: Ambulatory Orders Amlodipine Besylate 10 mg PO DAILY 11/23/19 Aspirin [ASA -] 81 mg PO DAILY 11/23/19 Atenolol [Tenormin -] 50 mg PO DAILY 11/23/19 Atorvastatin Ca [Lipitor] 80 mg PO DAILY 11/23/19 Diazepam [Valium] 10 mg PO Q4H PRN 11/23/19 Dulaglutide [Trulicity] 0.5 ml SQ WEEKLY 11/23/19 Duloxetine HCl [Cymbalta -] 90 mg PO DAILY 11/23/19 Furosemide [Lasix -] 20 mg PO DAILY PRN 11/23/19 Insulin Degludec [Tresiba Flextouch U-200] 14 unit SQ DAILY 11/23/19 Lisinopril/Hydrochlorothiazide [Lisinopril-Hctz 20-25 mg Tab] 1 tab PO DAILY 11/23/19 Morphine Sulfate 10 mg PO BID 11/23/19 Potassium Chloride 1 tab PO DAILY 11/23/19 Tadalafil [Cialis] 20 mg PO HS PRN 11/23/19 Zolpidem Tartrate 10 mg PO HS PRN 11/23/19 metFORMIN HCL [Metformin HCl ER] 2 tab PO DAILY 11/23/19 Clopidogrel Bisulfate [Plavix -] 75 mg PO DAILY 12/31/19 Gabapentin 400 mg PO DAILY 12/31/19 Cyclobenzaprine HCl [Flexeril -] 10 mg PO BID 05/20/20 L.acidoph,Paracasei, B.lactis [Probiotic] 1 each PO DAILY 05/20/20 Multivitamin [Multivitamins] 1 each PO DAILY 05/20/20 Oxycodone HCl/Acetaminophen [Endocet 7.5-325 mg Tablet] 1 each PO Q6H 05/20/20 Tamsulosin HCl [Flomax] 0.4 mg PO HS 05/20/20 Review of Systems - Review of Systems Constitutional: reports: No Symptoms Eyes: reports: No Symptoms HENT: reports: No Symptoms Neck: reports: No Symptoms Cardiovascular: reports: No Symptoms Respiratory: reports: No Symptoms Gastrointestinal: reports: No Symptoms Genitourinary: reports: No Symptoms Breasts: reports: No Symptoms Reported Musculoskeletal: reports: No Symptoms Integumentary: reports: Erythema (Rt foot), Wound (Rt plantar foot) Neurological: reports: No Symptoms Endocrine: reports: No Symptoms Hematology/Lymphatic: reports: No Symptoms Psychiatric: reports: No Symptoms Physical Exam Vital Signs: Vital Signs Temperature 98.5 F 05/20/20 13:55 Pulse Rate 86 05/20/20 13:55 Respiratory Rate 18 05/20/20 13:55 Blood Pressure 154/53 L 05/20/20 13:55 O2 Sat by Pulse Oximetry (%) 97 05/20/20 10:00 Constitutional: Yes: No Distress, Calm Eyes: Yes: Conjunctiva Clear, EOM Intact HENT: Yes: Atraumatic Neck: Yes: Supple Cardiovascular: Yes: Regular Rate and Rhythm Respiratory: Yes: CTA Bilaterally Gastrointestinal: Yes: Normal Bowel Sounds, Soft, Abdomen, Obese Musculoskeletal: Yes: WNL Edema: RLE: 1+ Peripheral Pulses WNL: Yes Integumentary: Yes: WNL Wound/Incision: Yes: Other (Rt plantar ulcer dry, RLE edema with erythema involving the Rt forefoot) Neurological: Yes: Alert, Oriented Labs: CBC, BMP 05/20/20 06:53 05/20/20 06:53 Laboratory Last Values WBC 9.6 K/mm3 (4.0-10.0) 05/20/20 06:53 RBC 3.27 M/mm3 (4.00-5.60) L 05/20/20 06:53 Hgb 9.5 GM/dL (11.7-16.9) L 05/20/20 06:53 Hct 28.1 % (35.4-49) L 05/20/20 06:53 MCV 85.9 fl (80-96) 05/20/20 06:53 MCH 29.1 pg (25.7-33.7) 05/20/20 06:53 MCHC 33.8 g/dl (32.0-35.9) 05/20/20 06:53 RDW 13.6 % (11.9-15.9) 05/20/20 06:53 Plt Count 244 K/MM3 (134-434) 05/20/20 06:53 MPV 7.3 fl (7.5-11.1) L 05/20/20 06:53 Absolute Neuts (auto) 7.7 K/mm3 (1.5-8.0) 05/20/20 06:53 Neutrophils % 79.9 % (42.8-82.8) 05/20/20 06:53 Lymphocytes % 8.7 % (8-40) 05/20/20 06:53 Monocytes % 9.2 % (3.8-10.2) 05/20/20 06:53 Eosinophils % 1.7 % (0-4.5) 05/20/20 06:53 Basophils % 0.5 % (0-2.0) 05/20/20 06:53 Nucleated RBC % 0 % (0-0) 05/20/20 06:53 ESR 116 mm/hr (0-20) H 05/20/20 06:53 Sodium 132 mmol/L (136-145) L 05/20/20 06:53 Potassium 3.9 mmol/L (3.5-5.1) 05/20/20 06:53 Chloride 99 mmol/L (98-107) 05/20/20 06:53 Carbon Dioxide 27 mmol/L (21-32) 05/20/20 06:53 Anion Gap 5 MMOL/L (8-16) L 05/20/20 06:53 BUN 15.5 mg/dL (7-18) 05/20/20 06:53 Creatinine 0.9 mg/dL (0.55-1.3) 05/20/20 06:53 Est GFR (CKD-EPI)AfAm 109.50 05/20/20 06:53 Est GFR (CKD-EPI)NonAf 94.48 05/20/20 06:53 POC Glucometer 111 UNITS (80-120) 05/20/20 12:09 Random Glucose 110 mg/dL (74-106) H 05/20/20 06:53 Hemoglobin A1c % 6.6 % (4.2-6.3) H 05/20/20 14:40 Calcium 8.2 mg/dL (8.5-10.1) L 05/20/20 06:53 Total Bilirubin 0.8 mg/dL (0.2-1) 05/20/20 06:53 AST 15 U/L (15-37) 05/20/20 06:53 ALT 18 U/L (13-61) 05/20/20 06:53 Alkaline Phosphatase 75 U/L (45-117) 05/20/20 06:53 C-Reactive Protein 9.6 MG/DL (0.00-0.3) H 05/20/20 06:53 Total Protein 6.3 g/dl (6.4-8.2) L 05/20/20 06:53 Albumin 2.5 g/dl (3.4-5.0) L 05/20/20 06:53 Triglycerides 102 mg/dL (0-150) 05/20/20 06:53 Cholesterol 115 mg/dL (50-200) 05/20/20 06:53 Total LDL Cholesterol 65 mg/dL (5-100) 05/20/20 06:53 HDL Cholesterol 30 mg/dL (40-60) L 05/20/20 06:53 TSH 0.74 uIU/ml (0.358-3.74) 05/20/20 06:53 Urine Color Yellow 05/19/20 23:00 Urine Appearance Clear 05/19/20 23:00 Urine pH 8.0 (5.0-8.0) 05/19/20 23:00 Ur Specific [place] 1.010 (1.010-1.035) 05/19/20 23:00 Urine Protein 2+ (NEGATIVE) H 05/19/20 23:00 Urine Glucose (UA) Negative (NEGATIVE) 05/19/20 23:00 Urine Ketones Negative (NEGATIVE) 05/19/20 23:00 Urine Blood 1+ (NEGATIVE) H 05/19/20 23:00 Urine Nitrite Negative (NEGATIVE) 05/19/20 23:00 Urine Bilirubin Negative (NEGATIVE) 05/19/20 23:00 Urine Urobilinogen 0.2 mg/dL (0.2-1.0) 05/19/20 23:00 Ur Leukocyte Esterase Trace (NEGATIVE) 05/19/20 23:00 Urine WBC (Auto) 69 /uL (0-25.8) 05/19/20 23:00 Urine RBC (Auto) 65 /uL (0-23.9) 05/19/20 23:00 Urine Casts (Auto) 0 /uL (0-3.1) 05/19/20 23:00 U Epithel Cells (Auto) 29 /uL (0-25.1) 05/19/20 23:00 U Sm Round Cell (Auto) Negative 05/19/20 23:00 Urine Bacteria (Auto) 32 /uL (0-1359) 05/19/20 23:00 Imaging - Results X-ray: Pending Problem List - Problems (1) Cellulitis Code(s): L03.90 - CELLULITIS, UNSPECIFIED (2) Diabetes mellitus Code(s): E11.9 - TYPE 2 DIABETES MELLITUS WITHOUT COMPLICATIONS (3) Diabetic neuropathy Code(s): E11.40 - TYPE 2 DIABETES MELLITUS WITH DIABETIC NEUROPATHY, UNSP (4) Encounter for screening laboratory testing for COVID-19 virus Code(s): Z11.59 - ENCOUNTER FOR SCREENING FOR OTHER VIRAL DISEASES (5) HLD (hyperlipidemia) Code(s): E78.5 - HYPERLIPIDEMIA, UNSPECIFIED (6) HTN (hypertension) Code(s): I10 - ESSENTIAL (PRIMARY) HYPERTENSION (7) MARCOS (obstructive sleep apnea) Code(s): G47.33 - OBSTRUCTIVE SLEEP APNEA (ADULT) (PEDIATRIC) (8) Obesity (BMI 30.0-34.9) Code(s): E66.9 - OBESITY, UNSPECIFIED (9) PAD (peripheral artery disease) Code(s): I73.9 - PERIPHERAL VASCULAR DISEASE, UNSPECIFIED (10) Wound of foot Code(s): S91.309A - UNSPECIFIED OPEN WOUND, UNSPECIFIED FOOT, INITIAL ENCOUNTER Assessment/Plan RLE cellulitis Diabetic chronic Rt foot ulcer Peripheral neuropathy PAD s/p stent Obesity HTN MARCOS -- Pt with significant RLE edema, +erythema/warmth of forefoot -- continue Zosyn/vancomycin empirically for now, monitor renal function -- Xray of Rt foot -- esr/crp are markedly elevated, will consider MRI -- wbc trending down -- Podiatry following Will follow up Thank you
[2020-05-20] MEDS: PIPERACILLIN/TAZOB 3.375 GM 3.375 GM in DEXTROSE 5%-WATER - 50 ML IVPB SCH (18:01)
[2020-05-20] MEDS: ATORVASTATIN CA 80 MG TABLET (FP) PO SCH (21:56)
[2020-05-20] MEDS: CYCLOBENZAPRINE HCL 10 MG TABLET (FP) PO SCH (21:56)
[2020-05-20] MEDS: COLLAGENASE CLOSTRIDIUM HIST. 30 GRAMS TUBE TP SCH (21:57)
[2020-05-20] MEDS: VANCOMYCIN HCL 1,250 MG in DEXTROSE 5%-WATER - 250 ML IVPB SCH (21:59)
[2020-05-20] MEDS: AMMONIUM LACTATE 12% LOTION 225 GM BOTTLE TP PRN (22:11)
[2020-05-21] MEDS ORDERED: PIPERACILLIN/TAZOBACTAM 3.375 GM VIAL IVPB ONE ×3 (02:19→16:50)
[2020-05-21] MEDS ORDERED: DEXTROSE 5%-WATER - 50 ML IVPB ONE ×3 (02:19→16:50)
[2020-05-21] MEDS: PIPERACILLIN/TAZOB 3.375 GM 3.375 GM in DEXTROSE 5%-WATER - 50 ML IVPB SCH ×3 (02:35→17:41)
[2020-05-21] MEDS: oxyCODONE HCL 5 MG TABLET PO PRN ×3 (02:50→16:58)
[2020-05-21] MEDS: ACETAMINOPHEN 325 MG TABLET (FP) PO PRN ×3 (02:50→17:00)
[2020-05-21] MEDS: INSULIN SLIDING SCALE (NOVOLOG) 1 VIAL SQ SCH ×4 (06:07→21:45)
[2020-05-21 08:13] LABS: BASO % 0.9 % (0-2.0); EOS % 3.2 % (0-4.5); HEMATOCRIT 31.2 % (35.4-49); HEMOGLOBIN 10.5 GM/dL (11.7-16.9); LYMPH % 12.7 % (8-40); MCHC 33.5 g/dl (32.0-35.9); MEAN CELL VOLUME 86.5 fl (80-96); MEAN PLT VOLUME 7.3 fl (7.5-11.1); MONO % 11.7 % (3.8-10.2); NEUT % 71.5 % (42.8-82.8); PLATELET COUNT 287 K/MM3 (134-434); RBC 3.61 M/mm3 (4.00-5.60); RDW 13.5 % (11.9-15.9); WHITE BLOOD COUNT 8.7 K/mm3 (4.0-10.0)
[2020-05-21 08:39] LABS: ALBUMIN 2.8 g/dl (3.4-5.0); BILIRUBIN,TOTAL 0.4 mg/dL (0.2-1); BLOOD UREA NITROGEN 14.4 mg/dL (7-18); CALCIUM 8.5 mg/dL (8.5-10.1); MAGNESIUM 2.2 mg/dL (1.8-2.4); TOT PROT 6.8 g/dl (6.4-8.2)
[2020-05-21] MEDS: MORPHINE SULFATE 2 MG/ML VIAL IVPUSH PRN (08:40)
[2020-05-21] MEDS: TAMSULOSIN HCL 0.4 MG CAP PO SCH (08:42)
[2020-05-21] MEDS: VANCOMYCIN HCL 1,250 MG in DEXTROSE 5%-WATER - 250 ML IVPB SCH ×2 (10:12→21:49)
[2020-05-21] MEDS: CLOPIDOGREL BISULFATE 75 MG TABLET (FP) PO SCH (10:14)
[2020-05-21] MEDS: GABAPENTIN 400 MG CAPSULE PO SCH (10:14)
[2020-05-21] MEDS: HYDROCHLOROTHIAZIDE 25 MG TABLET (FP) PO SCH (10:14)
[2020-05-21] MEDS: LACTOBACILLUS ACIDOPHILUS 1 TABLET PO SCH (10:14)
[2020-05-21] MEDS: MULTIVITAMINS (DAILY MVI) TABLET (FP) PO SCH (10:14)
[2020-05-21] MEDS: DULoxetine HCL 30 MG CAPSULE.DR PO SCH (10:14)
[2020-05-21] MEDS: CYCLOBENZAPRINE HCL 10 MG TABLET (FP) PO SCH ×2 (10:14→21:48)
[2020-05-21] MEDS: LISINOPRIL 20 MG TABLET (FP) PO SCH (10:14)
[2020-05-21] MEDS: ASPIRIN 81 MG CHEWABLE TABLETS PO SCH (10:14)
[2020-05-21] MEDS: ATENOLOL 50 MG TABLET (FP) PO SCH (10:15)
[2020-05-21] MEDS: amLODIPine BESYLATE 10 MG TABLET (FP) PO SCH (10:15)
[2020-05-21] MEDS: HEPARIN NA (PORCINE) 5,000 UNITS/ML 1ML VIAL SQ SCH ×3 (11:47→21:51)
[2020-05-21] MEDS: COLLAGENASE CLOSTRIDIUM HIST. 30 GRAMS TUBE TP SCH (14:56)
[2020-05-21] MEDS: AMMONIUM LACTATE 12% LOTION 225 GM BOTTLE TP PRN (14:57)
--- NOTE | 2020-05-21 17:10 | PN ---
Physical Exam: Patient is a 55 y/o male with a significant medical history of DM, PAD s/p stent, HTN, HLD, Diabetic Neuropathy. 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 SUBJECTIVE: Patient seen and examined at bedside, was not happy as he did not recieve his home dose of pain meds. OBJECTIVE: Vital Signs Period Temp Pulse Resp BP Sys/Esteves Pulse Ox Last 24 Hr 97.8 F-98 F 70-85 18-20 144-155/60-83 96-99 GENERAL: The patient is awake, alert, and fully oriented, in no acute distress. HEAD: Normal with no signs of trauma. EYES: PERRL, extraocular movements intact, sclera anicteric, conjunctiva clear. No ptosis. ENT: Ears normal, nares patent, oropharynx clear without exudates, moist mucous membranes. NECK: Trachea midline, full range of motion, supple. LUNGS: Breath sounds equal, clear to auscultation bilaterally, no wheezes, no crackles, no accessory muscle use. HEART: Regular rate and rhythm, S1, S2 without murmur, rub or gallop. ABDOMEN: Soft, nontender, nondistended, normoactive bowel sounds, no guarding, no rebound, no hepatosplenomegaly, no masses. EXTREMITIES: 2+ pulses, warm, well-perfused, Rt foot edema extending to ankle, with stage 3 ulcer at plantar base of 1st metatarsal, Lt foot callus, blackened ulcer extending from 1st metatarsal to interdigital webspace b/w 1st and 2nd toe. NEUROLOGICAL: Cranial nerves II through XII grossly intact. Normal speech, gait not observed. PSYCH: Normal mood, normal affect. SKIN: Warm, dry, normal turgor, no rashes or lesions noted Laboratory Results - last 24 hr 05/20/20 05/20/20 05/20/20 02:35 17:53 21:54 WBC RBC Hgb Hct MCV MCH MCHC RDW Plt Count MPV Absolute Neuts (auto) Neutrophils % Lymphocytes % Monocytes % Eosinophils % Basophils % Nucleated RBC % Sodium Potassium Chloride Carbon Dioxide Anion Gap BUN Creatinine Est GFR (CKD-EPI)AfAm Est GFR (CKD-EPI)NonAf POC Glucometer 93 144 Random Glucose Hemoglobin A1c % Calcium Magnesium Total Bilirubin AST ALT Alkaline Phosphatase Total Protein Albumin COVID-19 ([facility]) Not detected 05/21/20 05/21/20 05/21/20 06:05 07:43 07:43 WBC 8.7 RBC 3.61 L Hgb 10.5 L Hct 31.2 L MCV 86.5 MCH 29.0 MCHC 33.5 RDW 13.5 Plt Count 287 MPV 7.3 L Absolute Neuts (auto) 6.2 Neutrophils % 71.5 Lymphocytes % 12.7 D Monocytes % 11.7 H Eosinophils % 3.2 D Basophils % 0.9 Nucleated RBC % 0 Sodium Potassium Chloride Carbon Dioxide Anion Gap BUN Creatinine Est GFR (CKD-EPI)AfAm Est GFR (CKD-EPI)NonAf POC Glucometer 121 Random Glucose Hemoglobin A1c % 6.3 Calcium Magnesium Total Bilirubin AST ALT Alkaline Phosphatase Total Protein Albumin COVID-19 ([facility]) 05/21/20 05/21/20 07:43 11:26 WBC RBC Hgb Hct MCV MCH MCHC RDW Plt Count MPV Absolute Neuts (auto) Neutrophils % Lymphocytes % Monocytes % Eosinophils % Basophils % Nucleated RBC % Sodium 133 L Potassium 4.0 Chloride 99 Carbon Dioxide 27 Anion Gap 7 L BUN 14.4 Creatinine 1.0 Est GFR (CKD-EPI)AfAm 96.40 Est GFR (CKD-EPI)NonAf 83.18 POC Glucometer 145 Random Glucose 169 H Hemoglobin A1c % Calcium 8.5 Magnesium 2.2 Total Bilirubin 0.4 AST 19 ALT 25 Alkaline Phosphatase 77 Total Protein 6.8 Albumin 2.8 L COVID-19 ([facility]) Active Medications Generic Name Dose Route Start Last Admin Trade Name Freq PRN Reason Stop Dose Admin Acetaminophen 325 mg 05/20/20 11:15 05/21/20 10:29 Tylenol - PO 325 mg Q6H PRN Administration PAIN SCALE 5-6 Amlodipine Besylate 10 mg 05/20/20 10:00 05/21/20 10:15 Norvasc - PO 10 mg DAILY L[facility]YD Administration Aspirin 81 mg 05/20/20 10:00 05/21/20 10:14 Asa - PO 81 mg DAILY L[facility]YD Administration Atenolol 50 mg 05/20/20 10:00 05/21/20 10:15 Tenormin - PO 50 mg DAILY L[facility]YD Administration Atorvastatin Calcium 80 mg 05/20/20 22:00 05/20/20 21:56 Lipitor - PO 80 mg HS LLOYD Administration Clopidogrel Bisulfate 75 mg 05/20/20 10:00 05/21/20 10:14 Plavix - PO 75 mg DAILY LLOYD Administration Collagenase 1 applic 05/20/20 19:00 05/21/20 14:56 Santyl - TP 1 applic DAILY LLOYD Administration Protocol Cyclobenzaprine HCl 10 mg 05/20/20 22:00 05/21/20 10:14 Flexeril - PO 10 mg BID L[facility]D Administration Duloxetine HCl 90 mg 05/21/20 10:00 05/21/20 10:14 Cymbalta - PO 90 mg DAILY L[facility]D Administration Gabapentin 400 mg 05/20/20 10:00 05/21/20 10:14 Neurontin - PO 400 mg DAILY L[facility]D Administration Heparin Sodium (Porcine) 5,000 unit 05/20/20 10:00 05/21/20 11:47 Heparin - SQ Not Given BID LLO[facility]D Hydrochlorothiazide 25 mg 05/20/20 10:00 05/21/20 10:14 Hctz - PO 25 mg DAILY L[facility]D Administration Piperacillin Sod/Tazobactam 50 mls @ 100 mls/hr 05/20/20 18:00 05/21/20 10:29 Sod 3.375 gm/ Dextrose IVPB 100 mls/hr Q8H-IV [facility]D Administration Protocol Vancomycin HCl 1,250 mg/ 250 mls @ 166.667 mls/hr 05/20/20 22:00 05/21/20 10:12 Dextrose IVPB 166.667 mls/hr Q12H L[facility]D Administration Protocol Insulin Aspart 1 vial 05/20/20 07:00 05/21/20 11:47 Novolog Vial Sliding Scale - SQ Not Given ACHS L[facility]D Protocol Lactic Acid 1 applic 05/20/20 18:53 05/21/20 14:57 Lac-Hydrin 12 TP 1 applic DAILY PRN Administration Callous Lactobacillus Acidophilus 1 tab 05/21/20 10:00 05/21/20 10:14 Bacid - PO 1 tab DAILY L[facility]D Administration Lisinopril 20 mg 05/20/20 10:00 05/21/20 10:14 Prinivil PO 20 mg DAILY L[facility]D Administration Morphine Sulfate 15 mg 05/21/20 22:00 Ms Contin - PO BID L[facility]YD Multivitamins/Minerals/Vitamin C 1 tab 05/20/20 10:00 05/21/20 10:14 Tab-A-Vit - PO 1 tab DAILY [facility] Administration Oxycodone HCl 7.5 mg 05/20/20 11:56 05/21/20 10:26 Roxicodone - PO 7.5 mg Q6H PRN Administration PAIN SCALE 5-6 Pneumococcal 13-Valent Conj Vacc 0.5 ml 05/20/20 10:00 Prevnar 13 Syringe - IM 05/20/20 10:01 .ONCE ONE Tamsulosin HCl 0.4 mg 05/20/20 08:30 05/21/20 08:42 Flomax - PO 0.4 mg DAILY@0830 L[facility]YD Administration Zolpidem Tartrate 10 mg 05/20/20 13:02 Ambien - PO HS PRN INSOMNIA ASSESSMENT/PLAN: #RLE cellulitis -Leukocytosis (improving), ESR elevated, non-draining, pulses +2 bilaterally -Xray right foot r/o subcutaneous air. -MRI done pending report. -Continue VAncomycin and Zosyn, WBC trending down, Hx of MRSA? -blood cultures pending -Podiatry consult appreciated. -Vascular consult appreciated.no need for vascular intervention. -ID consult appreciated. #DM -on home trulicity and metformin, will hold for now -Insulin sliding scale implemented #HTN -Continue home HCTZ 25 daily, Lisinopril 20mg daily, Atenolol 50mg daily #HLD - Lipitor 80mg #PAD s/p stent -on ASA and plavix # H/O back pain - checked for home dose of morphine and percocet, adjusted meds - need to verify etiology with PMD #Diabetic neuropathy -Continue Gabapentin 400mg daily #FEN -Not on any standing fluids -Electrolytes wnl, routine bmp monitoring -Sodium restricted/diabetic diet #DVT Prophylaxis Heparin 5000u sq bid Visit type - Emergency Visit Emergency Visit: Yes ED Registration Date: 05/19/20 Care time: The patient presented to the Emergency Department on the above date and was hospitalized for further evaluation of their emergent condition. - New Patient This patient is new to me today: Yes Date on this admission: 05/21/20 - Critical Care Critical Care patient: No - Discharge Referral Referred to [facility] No
--- NOTE | 2020-05-21 21:17 | PN ---
Progress Note, Physician History of Present Illness: Open wound over 1 year - Current Medication List Current Medications: Active Medications Acetaminophen (Tylenol -) 325 mg PO Q6H PRN PRN Reason: PAIN SCALE 5-6 Last Admin: 05/21/20 17:00 Dose: 325 mg Documented by: Amlodipine Besylate (Norvasc -) 10 mg PO DAILY [facility] Last Admin: 05/21/20 10:15 Dose: 10 mg Documented by: Aspirin (Asa -) 81 mg PO DAILY [facility] Last Admin: 05/21/20 10:14 Dose: 81 mg Documented by: Atenolol (Tenormin -) 50 mg PO DAILY [facility] Last Admin: 05/21/20 10:15 Dose: 50 mg Documented by: Atorvastatin Calcium (Lipitor -) 80 mg PO HS [facility] Last Admin: 05/20/20 21:56 Dose: 80 mg Documented by: Clopidogrel Bisulfate (Plavix -) 75 mg PO DAILY [facility] Last Admin: 05/21/20 10:14 Dose: 75 mg Documented by: Collagenase (Santyl -) 1 applic TP DAILY [facility]; Protocol Last Admin: 05/21/20 14:56 Dose: 1 applic Documented by: Cyclobenzaprine HCl (Flexeril -) 10 mg PO BID [facility] Last Admin: 05/21/20 10:14 Dose: 10 mg Documented by: Duloxetine HCl (Cymbalta -) 90 mg PO DAILY [facility] Last Admin: 05/21/20 10:14 Dose: 90 mg Documented by: Gabapentin (Neurontin -) 400 mg PO DAILY [facility] Last Admin: 05/21/20 10:14 Dose: 400 mg Documented by: Heparin Sodium (Porcine) (Heparin -) 5,000 unit SQ BID [facility] Last Admin: 05/21/20 11:47 Dose: Not Given Documented by: Hydrochlorothiazide (Hctz -) 25 mg PO DAILY [facility] Last Admin: 05/21/20 10:14 Dose: 25 mg Documented by: Piperacillin Sod/Tazobactam (Sod 3.375 gm/ Dextrose) 50 mls @ 100 mls/hr IVPB Q8H-IV [facility]; Protocol Last Admin: 05/21/20 17:41 Dose: 100 mls/hr Documented by: Vancomycin HCl 1,250 mg/ (Dextrose) 250 mls @ 166.667 mls/hr IVPB Q12H [facility]; P rotocol Last Admin: 05/21/20 10:12 Dose: 166.667 mls/hr Documented by: Insulin Aspart (Novolog Vial Sliding Scale -) 1 vial SQ ACHS [facility]; Protocol Last Admin: 05/21/20 17:36 Dose: Not Given Documented by: Lactic Acid (Lac-Hydrin 12) 1 applic TP DAILY PRN PRN Reason: Callous Last Admin: 05/21/20 14:57 Dose: 1 applic Documented by: Lactobacillus Acidophilus (Bacid -) 1 tab PO DAILY [facility] Last Admin: 05/21/20 10:14 Dose: 1 tab Documented by: Lisinopril (Prinivil) 20 mg PO DAILY [facility] Last Admin: 05/21/20 10:14 Dose: 20 mg Documented by: Morphine Sulfate (Ms Contin -) 15 mg PO BID [facility] Multivitamins/Minerals/Vitamin C (Tab-A-Vit -) 1 tab PO DAILY [facility] Last Admin: 05/21/20 10:14 Dose: 1 tab Documented by: Oxycodone HCl (Roxicodone -) 7.5 mg PO Q6H PRN PRN Reason: PAIN SCALE 5-6 Last Admin: 05/21/20 16:58 Dose: 7.5 mg Documented by: Tamsulosin HCl (Flomax -) 0.4 mg PO DAILY@0830 [facility] Last Admin: 05/21/20 08:42 Dose: 0.4 mg Documented by: Zolpidem Tartrate (Ambien -) 10 mg PO HS PRN PRN Reason: INSOMNIA - Objective Vital Signs: Vital Signs Temperature 98.5 F 05/21/20 19:43 Pulse Rate 79 05/21/20 19:43 Respiratory Rate 20 05/21/20 14:10 Blood Pressure 144/73 05/21/20 19:43 O2 Sat by Pulse Oximetry (%) 96 05/21/20 16:42 Wound/Incision: Yes: Other (+improved cellulitis and wbc, +grade 2 wound plantar right foot, -drainage, mri negative for om possible abscess butno evidence clinically of that) Labs: CBC, BMP 05/21/20 07:43 05/21/20 07:43 Assessment/Plan Improved Cellulitis Grade 2 wound Santyl to wound daily. MRI report reviewed. Spoke with Dr. Orr. Vascular no intervention at this time. No surgical intervention from Podiatry at this p oint. Will re-evaluate daily. Will follow.
[2020-05-21] MEDS: ATORVASTATIN CA 80 MG TABLET (FP) PO SCH (21:48)
[2020-05-21] MEDS: morphine SO4 SUSTAINED ACTING 15 MG TABLET.SA PO SCH (21:48)
--- NOTE | 2020-05-21 21:50 | PN ---
Progress Note, Physician History of Present Illness: Pt seen with Dr. Cantu at bedside. He states he feels well. Slight decrease in Rt foot erythema, +chronic edema. No tenderness. wbc trending down. Remains afebrile. - Current Medication List Current Medications: Active Medications Acetaminophen (Tylenol -) 325 mg PO Q6H PRN PRN Reason: PAIN SCALE 5-6 Last Admin: 05/21/20 17:00 Dose: 325 mg Documented by: Amlodipine Besylate (Norvasc -) 10 mg PO DAILY [facility] Last Admin: 05/21/20 10:15 Dose: 10 mg Documented by: Aspirin (Asa -) 81 mg PO DAILY [facility] Last Admin: 05/21/20 10:14 Dose: 81 mg Documented by: Atenolol (Tenormin -) 50 mg PO DAILY [facility] Last Admin: 05/21/20 10:15 Dose: 50 mg Documented by: Atorvastatin Calcium (Lipitor -) 80 mg PO HS [facility] Last Admin: 05/20/20 21:56 Dose: 80 mg Documented by: Clopidogrel Bisulfate (Plavix -) 75 mg PO DAILY [facility] Last Admin: 05/21/20 10:14 Dose: 75 mg Documented by: Collagenase (Santyl -) 1 applic TP DAILY [facility]; Protocol Last Admin: 05/21/20 14:56 Dose: 1 applic Documented by: Cyclobenzaprine HCl (Flexeril -) 10 mg PO BID [facility] Last Admin: 05/21/20 10:14 Dose: 10 mg Documented by: Duloxetine HCl (Cymbalta -) 90 mg PO DAILY [facility] Last Admin: 05/21/20 10:14 Dose: 90 mg Documented by: Gabapentin (Neurontin -) 400 mg PO DAILY [facility] Last Admin: 05/21/20 10:14 Dose: 400 mg Documented by: Heparin Sodium (Porcine) (Heparin -) 5,000 unit SQ BID [facility] Last Admin: 05/21/20 11:47 Dose: Not Given Documented by: Hydrochlorothiazide (Hctz -) 25 mg PO DAILY [facility] Last Admin: 05/21/20 10:14 Dose: 25 mg Documented by: Piperacillin Sod/Tazobactam (Sod 3.375 gm/ Dextrose) 50 mls @ 100 mls/hr IVPB Q8H-IV [facility]; Protocol Last Admin: 05/21/20 17:41 Dose: 100 mls/hr Documented by: Vancomycin HCl 1,250 mg/ (Dextrose) 250 mls @ 166.667 mls/hr IVPB Q12H [facility]; Protocol Last Admin: 05/21/20 10:12 Dose: 166.667 mls/hr Documented by: Insulin Aspart (Novolog Vial Sliding Scale -) 1 vial SQ ACHS [facility]; Protocol Last Admin: 05/21/20 17:36 Dose: Not Given Documented by: Lactic Acid (Lac-Hydrin 12) 1 applic TP DAILY PRN PRN Reason: Callous Last Admin: 05/21/20 14:57 Dose: 1 applic Documented by: Lactobacillus Acidophilus (Bacid -) 1 tab PO DAILY [facility] Last Admin: 05/21/20 10:14 Dose: 1 tab Documented by: Lisinopril (Prinivil) 20 mg PO DAILY [facility] Last Admin: 05/21/20 10:14 Dose: 20 mg Documented by: Morphine Sulfate (Ms Contin -) 15 mg PO BID [facility] Multivitamins/Minerals/Vitamin C (Tab-A-Vit -) 1 tab PO DAILY [facility] Last Admin: 05/21/20 10:14 Dose: 1 tab Documented by: Oxycodone HCl (Roxicodone -) 7.5 mg PO Q6H PRN PRN Reason: PAIN SCALE 5-6 Last Admin: 05/21/20 16:58 Dose: 7.5 mg Documented by: Tamsulosin HCl (Flomax -) 0.4 mg PO DAILY@0830 [facility] Last Admin: 05/21/20 08:42 Dose: 0.4 mg Documented by: Zolpidem Tartrate (Ambien -) 10 mg PO HS PRN PRN Reason: INSOMNIA - Objective Vital Signs: Vital Signs Temperature 98.5 F 05/21/20 19:43 Pulse Rate 79 05/21/20 19:43 Respiratory Rate 20 05/21/20 14:10 Blood Pressure 144/73 05/21/20 19:43 O2 Sat by Pulse Oximetry (%) 96 05/21/20 16:42 Constitutional: Yes: No Distress, Calm Cardiovascular: Yes: Regular Rate and Rhythm Respiratory: Yes: Regular Gastrointestinal: Yes: Normal Bowel Sounds, Soft, Abdomen, Obese Genitourinary: Yes: WNL Extremities: Yes: Erythema (Rt forefoot erythema/warmth, +RLE edema) Integumentary: Yes: WNL Labs: CBC, BMP 05/21/20 07:43 05/21/20 07:43 Laboratory Last Values WBC 8.7 K/mm3 (4.0-10.0) 05/21/20 07:43 RBC 3.61 M/mm3 (4.00-5.60) L 05/21/20 07:43 Hgb 10.5 GM/dL (11.7-16.9) L 05/21/20 07:43 Hct 31.2 % (35.4-49) L 05/21/20 07:43 MCV 86.5 fl (80-96) 05/21/20 07:43 MCH 29.0 pg (25.7-33.7) 05/21/20 07:43 MCHC 33.5 g/dl (32.0-35.9) 05/21/20 07:43 RDW 13.5 % (11.9-15.9) 05/21/20 07:43 Plt Count 287 K/MM3 (134-434) 05/21/20 07:43 MPV 7.3 fl (7.5-11.1) L 05/21/20 07:43 Absolute Neuts (auto) 6.2 K/mm3 (1.5-8.0) 05/21/20 07:43 Neutrophils % 71.5 % (42.8-82.8) 05/21/20 07:43 Lymphocytes % 12.7 % (8-40) D 05/21/20 07:43 Monocytes % 11.7 % (3.8-10.2) H 05/21/20 07:43 Eosinophils % 3.2 % (0-4.5) D 05/21/20 07:43 Basophils % 0.9 % (0-2.0) 05/21/20 07:43 Nucleated RBC % 0 % (0-0) 05/21/20 07:43 ESR 116 mm/hr (0-20) H 05/20/20 06:53 Sodium 133 mmol/L (136-145) L 05/21/20 07:43 Potassium 4.0 mmol/L (3.5-5.1) 05/21/20 07:43 Chloride 99 mmol/L (98-107) 05/21/20 07:43 Carbon Dioxide 27 mmol/L (21-32) 05/21/20 07:43 Anion Gap 7 MMOL/L (8-16) L 05/21/20 07:43 BUN 14.4 mg/dL (7-18) 05/21/20 07:43 Creatinine 1.0 mg/dL (0.55-1.3) 05/21/20 07:43 Est GFR (CKD-EPI)AfAm 96.40 05/21/20 07:43 Est GFR (CKD-EPI)NonAf 83.18 05/21/20 07:43 POC Glucometer 138 UNITS (80-120) 05/21/20 21:43 Random Glucose 169 mg/dL (74-106) H 05/21/20 07:43 Hemoglobin A1c % 6.3 % (4.2-6.3) 05/21/20 07:43 Calcium 8.5 mg/dL (8.5-10.1) 05/21/20 07:43 Magnesium 2.2 mg/dL (1.8-2.4) 05/21/20 07:43 Total Bilirubin 0.4 mg/dL (0.2-1) 05/21/20 07:43 AST 19 U/L (15-37) 05/21/20 07:43 ALT 25 U/L (13-61) 05/21/20 07:43 Alkaline Phosphatase 77 U/L (45-117) 05/21/20 07:43 C-Reactive Protein 9.6 MG/DL (0.00-0.3) H 05/20/20 06:53 Total Protein 6.8 g/dl (6.4-8.2) 05/21/20 07:43 Albumin 2.8 g/dl (3.4-5.0) L 05/21/20 07:43 Triglycerides 102 mg/dL (0-150) 05/20/20 06:53 Cholesterol 115 mg/dL (50-200) 05/20/20 06:53 Total LDL Cholesterol 65 mg/dL (5-100) 05/20/20 06:53 HDL Cholesterol 30 mg/dL (40-60) L 05/20/20 06:53 TSH 0.74 uIU/ml (0.358-3.74) 05/20/20 06:53 Urine Color Yellow 05/19/20 23:00 Urine Appearance Clear 05/19/20 23:00 Urine pH 8.0 (5.0-8.0) 05/19/20 23:00 Ur Specific Perkins 1.010 (1.010-1.035) 05/19/20 23:00 Urine Protein 2+ (NEGATIVE) H 05/19/20 23:00 Urine Glucose (UA) Negative (NEGATIVE) 05/19/20 23:00 Urine Ketones Negative (NEGATIVE) 05/19/20 23:00 Urine Blood 1+ (NEGATIVE) H 05/19/20 23:00 Urine Nitrite Negative (NEGATIVE) 05/19/20 23:00 Urine Bilirubin Negative (NEGATIVE) 05/19/20 23:00 Urine Urobilinogen 0.2 mg/dL (0.2-1.0) 05/19/20 23:00 Ur Leukocyte Esterase Trace (NEGATIVE) 05/19/20 23:00 Urine WBC (Auto) 69 /uL (0-25.8) 05/19/20 23:00 Urine RBC (Auto) 65 /uL (0-23.9) 05/19/20 23:00 Urine Casts (Auto) 0 /uL (0-3.1) 05/19/20 23:00 U Epithel Cells (Auto) 29 /uL (0-25.1) 05/19/20 23:00 U Sm Round Cell (Auto) Negative 05/19/20 23:00 Urine Bacteria (Auto) 32 /uL (0-1359) 05/19/20 23:00 COVID-19 ([facility]) Not detected (Not Detected) 05/20/20 02:35 Microbiology 05/19/20 21:29 Blood - Peripheral Venous Blood Culture - Preliminary NO GROWTH OBTAINED AFTER 48 HOURS, INCUBATION TO CONTINUE FOR 3 DAYS. 05/19/20 21:29 Blood - Peripheral Venous Blood Culture - Preliminary NO GROWTH OBTAINED AFTER 48 HOURS, INCUBATION TO CONTINUE FOR 3 DAYS. 05/19/20 23:00 Urine - Urine Clean Catch Urine Culture - Final NO GROWTH OBTAINED Problem List - Problems (1) Cellulitis Code(s): L03.90 - CELLULITIS, UNSPECIFIED (2) Diabetes mellitus Code(s): E11.9 - TYPE 2 DIABETES MELLITUS WITHOUT COMPLICATIONS (3) Diabetic neuropathy Code(s): E11.40 - TYPE 2 DIABETES MELLITUS WITH DIABETIC NEUROPATHY, UNSP (4) Encounter for screening laboratory testing for COVID-19 virus Code(s): Z11.59 - ENCOUNTER FOR SCREENING FOR OTHER VIRAL DISEASES (5) HLD (hyperlipidemia) Code(s): E78.5 - HYPERLIPIDEMIA, UNSPECIFIED (6) HTN (hypertension) Code(s): I10 - ESSENTIAL (PRIMARY) HYPERTENSION (7) MARCOS (obstructive sleep apnea) Code(s): G47.33 - OBSTRUCTIVE SLEEP APNEA (ADULT) (PEDIATRIC) (8) Obesity (BMI 30.0-34.9) Code(s): E66.9 - OBESITY, UNSPECIFIED (9) PAD (peripheral artery disease) Code(s): I73.9 - PERIPHERAL VASCULAR DISEASE, UNSPECIFIED (10) Wound of foot Code(s): S91.309A - UNSPECIFIED OPEN WOUND, UNSPECIFIED FOOT, INITIAL ENCOUNTER Assessment/Plan RLE cellulitis Diabetic chronic Rt foot ulcer Peripheral neuropathy PAD s/p stent Obesity HTN MARCOS -- RLE edema, +erythema/warmth of forefoot -- continue Zosyn/vancomycin empirically for now, monitor renal function -- MRI +cellulitis with possible developing abscess, no OM. Discussed with Podiatry who would hold off on surgical intervention at this time. -- wbc trending down continue monitor for improvement
[2020-05-21] MEDS: ZOLPIDEM TARTRATE 5 MG TABLET PO PRN (23:10)
[2020-05-22] MEDS ORDERED: PIPERACILLIN/TAZOBACTAM 3.375 GM VIAL IVPB ONE ×3 (01:14→15:49)
[2020-05-22] MEDS ORDERED: DEXTROSE 5%-WATER - 50 ML IVPB ONE ×3 (01:14→15:49)
[2020-05-22] MEDS: PIPERACILLIN/TAZOB 3.375 GM 3.375 GM in DEXTROSE 5%-WATER - 50 ML IVPB SCH ×3 (02:53→17:33)
[2020-05-22] MEDS: INSULIN SLIDING SCALE (NOVOLOG) 1 VIAL SQ SCH ×4 (06:34→22:03)
[2020-05-22] MEDS: TAMSULOSIN HCL 0.4 MG CAP PO SCH (08:08)
[2020-05-22 08:57] LABS: BASO % 0.6 % (0-2.0); EOS % 3.3 % (0-4.5); HEMATOCRIT 30.3 % (35.4-49); HEMOGLOBIN 10.3 GM/dL (11.7-16.9); LYMPH % 18.1 % (8-40); MCHC 33.9 g/dl (32.0-35.9); MEAN CELL VOLUME 85.6 fl (80-96); MEAN PLT VOLUME 7.4 fl (7.5-11.1); MONO % 10.6 % (3.8-10.2); NEUT % 67.4 % (42.8-82.8); PLATELET COUNT 273 K/MM3 (134-434); RBC 3.54 M/mm3 (4.00-5.60); RDW 13.6 % (11.9-15.9)
[2020-05-22 09:28] LABS: ALBUMIN 2.5 g/dl (3.4-5.0); BILIRUBIN,TOTAL 0.3 mg/dL (0.2-1); BLOOD UREA NITROGEN 14.6 mg/dL (7-18); CALCIUM 8.5 mg/dL (8.5-10.1); POTASSIUM 4.4 mmol/L (3.5-5.1); TOT PROT 6.4 g/dl (6.4-8.2)
[2020-05-22] MEDS: VANCOMYCIN HCL 1,250 MG in DEXTROSE 5%-WATER - 250 ML IVPB SCH ×2 (09:39→21:47)
[2020-05-22] MEDS: oxyCODONE HCL 5 MG TABLET PO PRN ×2 (10:01→17:42)
[2020-05-22] MEDS: morphine SO4 SUSTAINED ACTING 15 MG TABLET.SA PO SCH ×2 (10:02→21:46)
[2020-05-22] MEDS: DULoxetine HCL 30 MG CAPSULE.DR PO SCH (10:03)
[2020-05-22] MEDS: MULTIVITAMINS (DAILY MVI) TABLET (FP) PO SCH (10:04)
[2020-05-22] MEDS: HYDROCHLOROTHIAZIDE 25 MG TABLET (FP) PO SCH (10:04)
[2020-05-22] MEDS: ASPIRIN 81 MG CHEWABLE TABLETS PO SCH (10:04)
[2020-05-22] MEDS: GABAPENTIN 400 MG CAPSULE PO SCH (10:04)
[2020-05-22] MEDS: LISINOPRIL 20 MG TABLET (FP) PO SCH (10:04)
[2020-05-22] MEDS: LACTOBACILLUS ACIDOPHILUS 1 TABLET PO SCH (10:04)
[2020-05-22] MEDS: CLOPIDOGREL BISULFATE 75 MG TABLET (FP) PO SCH (10:05)
[2020-05-22] MEDS: ATENOLOL 50 MG TABLET (FP) PO SCH (10:05)
[2020-05-22] MEDS: CYCLOBENZAPRINE HCL 10 MG TABLET (FP) PO SCH ×2 (10:05→21:46)
[2020-05-22] MEDS: amLODIPine BESYLATE 10 MG TABLET (FP) PO SCH (10:05)
[2020-05-22] MEDS: ACETAMINOPHEN 325 MG TABLET (FP) PO PRN ×2 (10:05→17:39)
[2020-05-22] MEDS: HEPARIN NA (PORCINE) 5,000 UNITS/ML 1ML VIAL SQ SCH ×2 (10:06→21:46)
[2020-05-22] MEDS: COLLAGENASE CLOSTRIDIUM HIST. 30 GRAMS TUBE TP SCH (10:07)
--- NOTE | 2020-05-22 13:53 | PN ---
Physical Exam: Patient is a 55 y/o male with a significant medical history of DM, PAD s/p stent, HTN, HLD, Diabetic Neuropathy. Who presents to the ED sent in by his ice cutter Dr. Cantu for wound infection/cellulitis on right foot. SUBJECTIVE: Patient seen and examined at bedside, comfortable OBJECTIVE: Vital Signs Period Temp Pulse Resp BP Sys/Esteves Pulse Ox Last 24 Hr 97.8 F-98.5 F 70-82 20-20 123-144/57-73 96-100 GENERAL: The patient is awake, alert, and fully oriented, in no acute distress. HEAD: Normal with no signs of trauma. EYES: PERRL, extraocular movements intact, sclera anicteric, conjunctiva clear. No ptosis. ENT: Ears normal, nares patent, oropharynx clear without exudates, moist mucous membranes. NECK: Trachea midline, full range of motion, supple. LUNGS: Breath sounds equal, clear to auscultation bilaterally, no wheezes, no crackles, no accessory muscle use. HEART: Regular rate and rhythm, S1, S2 without murmur, rub or gallop. ABDOMEN: Soft, nontender, nondistended, normoactive bowel sounds, no guarding, no rebound, no hepatosplenomegaly, no masses. EXTREMITIES: 2+ pulses, warm, well-perfused, no edema. NEUROLOGICAL: Cranial nerves II through XII grossly intact. Normal speech, gait not observed. PSYCH: Normal mood, normal affect. SKIN: Warm, dry, normal turgor, no rashes or lesions noted Laboratory Results - last 24 hr 05/21/20 05/21/20 05/22/20 16:58 21:43 05:46 WBC RBC Hgb Hct MCV MCH MCHC RDW Plt Count MPV Absolute Neuts (auto) Neutrophils % Lymphocytes % Monocytes % Eosinophils % Basophils % Nucleated RBC % Sodium Potassium Chloride Carbon Dioxide Anion Gap BUN Creatinine Est GFR (CKD-EPI)AfAm Est GFR (CKD-EPI)NonAf POC Glucometer 149 138 116 Random Glucose Calcium Total Bilirubin AST ALT Alkaline Phosphatase Total Protein Albumin Vancomycin Pre-Dose 05/22/20 05/22/20 05/22/20 06:55 06:55 06:55 WBC 7.0 RBC 3.54 L Hgb 10.3 L Hct 30.3 L MCV 85.6 MCH 29.0 MCHC 33.9 RDW 13.6 Plt Count 273 MPV 7.4 L Absolute Neuts (auto) 4.7 Neutrophils % 67.4 Lymphocytes % 18.1 D Monocytes % 10.6 H Eosinophils % 3.3 Basophils % 0.6 Nucleated RBC % 0 Sodium 133 L Potassium 4.4 Chloride 97 L Carbon Dioxide 29 Anion Gap 7 L BUN 14.6 Creatinine 1.0 Est GFR (CKD-EPI)AfAm 96.40 Est GFR (CKD-EPI)NonAf 83.18 POC Glucometer Random Glucose 96 Calcium 8.5 Total Bilirubin 0.3 AST 19 ALT 28 Alkaline Phosphatase 71 Total Protein 6.4 Albumin 2.5 L Vancomycin Pre-Dose 17.6 H 05/22/20 11:29 WBC RBC Hgb Hct MCV MCH MCHC RDW Plt Count MPV Absolute Neuts (auto) Neutrophils % Lymphocytes % Monocytes % Eosinophils % Basophils % Nucleated RBC % Sodium Potassium Chloride Carbon Dioxide Anion Gap BUN Creatinine Est GFR (CKD-EPI)AfAm Est GFR (CKD-EPI)NonAf POC Glucometer 148 Random Glucose Calcium Total Bilirubin AST ALT Alkaline Phosphatase Total Protein Albumin Vancomycin Pre-Dose Active Medications Generic Name Dose Route Start Last Admin Trade Name Freq PRN Reason Stop Dose Admin Acetaminophen 325 mg 05/20/20 11:15 05/22/20 10:05 Tylenol - PO 325 mg Q6H PRN Administration PAIN SCALE 5-6 Amlodipine Besylate 10 mg 05/20/20 10:00 05/22/20 10:05 Norvasc - PO 10 mg DAILY [facility] Administration Aspirin 81 mg 05/20/20 10:00 05/22/20 10:04 Asa - PO 81 mg DAILY [facility] Administration Atenolol 50 mg 05/20/20 10:00 05/22/20 10:05 Tenormin - PO 50 mg DAILY [facility] Administration Atorvastatin Calcium 80 mg 05/20/20 22:00 05/21/20 21:48 Lipitor - PO 80 mg HS [facility] Administration Clopidogrel Bisulfate 75 mg 05/20/20 10:00 05/22/20 10:05 Plavix - PO 75 mg DAILY [facility] Administration Collagenase 1 applic 05/20/20 19:00 05/22/20 10:07 Santyl - TP Not Given DAILY [facility] Protocol Cyclobenzaprine HCl 10 mg 05/20/20 22:00 05/22/20 10:05 Flexeril - PO 10 mg BID [facility] Administration Duloxetine HCl 90 mg 05/21/20 10:00 05/22/20 10:03 Cymbalta - PO 90 mg DAILY [facility] Administration Gabapentin 400 mg 05/20/20 10:00 05/22/20 10:04 Neurontin - PO 400 mg DAILY [facility] Administration Heparin Sodium (Porcine) 5,000 unit 05/20/20 10:00 05/22/20 10:06 Heparin - SQ Not Given BID [facility] Hydrochlorothiazide 25 mg 05/20/20 10:00 05/22/20 10:04 Hctz - PO 25 mg DAILY [facility] Administration Piperacillin Sod/Tazobactam 50 mls @ 100 mls/hr 05/20/20 18:00 05/22/20 09:36 Sod 3.375 gm/ Dextrose IVPB 100 mls/hr Q8H-IV [facility] Administration Protocol Vancomycin HCl 1,250 mg/ 250 mls @ 166.667 mls/hr 05/20/20 22:00 05/22/20 09:39 Dextrose IVPB 166.667 mls/hr Q12H [facility] Administration Protocol Insulin Aspart 1 vial 05/20/20 07:00 05/22/20 11:46 Novolog Vial Sliding Scale - SQ Not Given ACHS [facility] Protocol Lactic Acid 1 applic 05/20/20 18:53 05/21/20 14:57 Lac-Hydrin 12 TP 1 applic DAILY PRN Administration Callous Lactobacillus Acidophilus 1 tab 05/21/20 10:00 05/22/20 10:04 Bacid - PO 1 tab DAILY [facility] Administration Lisinopril 20 mg 05/20/20 10:00 05/22/20 10:04 Prinivil PO 20 mg DAILY [facility] Administration Morphine Sulfate 15 mg 05/21/20 22:00 05/22/20 10:02 Ms Contin - PO 15 mg BID [facility] Administration Multivitamins/Minerals/Vitamin C 1 tab 05/20/20 10:00 05/22/20 10:04 Tab-A-Vit - PO 1 tab DAILY [facility] Administration Oxycodone HCl 7.5 mg 05/20/20 11:56 05/22/20 10:01 Roxicodone - PO 7.5 mg Q6H PRN Administration PAIN SCALE 5-6 Tamsulosin HCl 0.4 mg 05/20/20 08:30 05/22/20 08:08 Flomax - PO 0.4 mg DAILY@0830 [facility] Administration Zolpidem Tartrate 10 mg 05/20/20 13:02 05/21/20 23:10 Ambien - PO 10 mg HS PRN Administration INSOMNIA ASSESSMENT/PLAN: #RLE cellulitis -Leukocytosis resolved -MRI r/out osteomyelitis -Continue Vancomycin and Zosyn, Hx of MRSA? -blood cultures pending -Podiatry consult appreciated. -Vascular consult appreciated.no need for vascular intervention. -ID consult appreciated. #DM -on home trulicity and metformin, will hold for now -Insulin sliding scale implemented #HTN -Continue home HCTZ 25 daily, Lisinopril 20mg daily, Atenolol 50mg daily #HLD - Lipitor 80mg #PAD s/p stent -on ASA and plavix # H/O back pain - checked for home dose of morphine and percocet, adjusted meds - need to verify etiology with PMD #Diabetic neuropathy -Continue Gabapentin 400mg daily #DVT Prophylaxis Heparin 5000u sq bid Visit type - Emergency Visit Emergency Visit: Yes ED Registration Date: 05/19/20 Care time: The patient presented to the Emergency Department on the above date and was hospitalized for further evaluation of their emergent condition. - New Patient This patient is new to me today: No - Critical Care Critical Care patient: No - Discharge Referral Referred to [facility] Med P.[facility] No
--- NOTE | 2020-05-22 20:44 | PN ---
Progress Note, Physician History of Present Illness: Pt states he feels well. Remains afebrile. Denies LE pain. +LE edema/erythema of foot. - Current Medication List Current Medications: Active Medications Acetaminophen (Tylenol -) 325 mg PO Q6H PRN PRN Reason: PAIN SCALE 5-6 Last Admin: 05/22/20 17:39 Dose: 325 mg Documented by: Amlodipine Besylate (Norvasc -) 10 mg PO DAILY [facility] Last Admin: 05/22/20 10:05 Dose: 10 mg Documented by: Aspirin (Asa -) 81 mg PO DAILY [facility] Last Admin: 05/22/20 10:04 Dose: 81 mg Documented by: Atenolol (Tenormin -) 50 mg PO DAILY [facility] Last Admin: 05/22/20 10:05 Dose: 50 mg Documented by: Atorvastatin Calcium (Lipitor -) 80 mg PO HS [facility] Last Admin: 05/21/20 21:48 Dose: 80 mg Documented by: Clopidogrel Bisulfate (Plavix -) 75 mg PO DAILY [facility] Last Admin: 05/22/20 10:05 Dose: 75 mg Documented by: Collagenase (Santyl -) 1 applic TP DAILY [facility]; Protocol Last Admin: 05/22/20 10:07 Dose: Not Given Documented by: Cyclobenzaprine HCl (Flexeril -) 10 mg PO BID [facility] Last Admin: 05/22/20 10:05 Dose: 10 mg Documented by: Duloxetine HCl (Cymbalta -) 90 mg PO DAILY [facility] Last Admin: 05/22/20 10:03 Dose: 90 mg Documented by: Gabapentin (Neurontin -) 400 mg PO DAILY [facility] Last Admin: 05/22/20 10:04 Dose: 400 mg Documented by: Heparin Sodium (Porcine) (Heparin -) 5,000 unit SQ BID [facility] Last Admin: 05/22/20 10:06 Dose: Not Given Documented by: Hydrochlorothiazide (Hctz -) 25 mg PO DAILY [facility] Last Admin: 05/22/20 10:04 Dose: 25 mg Documented by: Piperacillin Sod/Tazobactam (Sod 3.375 gm/ Dextrose) 50 mls @ 100 mls/hr IVPB Q8H-IV [facility]; Protocol Last Admin: 05/22/20 17:33 Dose: 100 mls/hr Documented by: Vancomycin HCl 1,250 mg/ (Dextrose) 250 mls @ 166.667 mls/hr IVPB Q12H [facility]; Protocol Last Admin: 05/22/20 09:39 Dose: 166.667 mls/hr Documented by: Insulin Aspart (Novolog Vial Sliding Scale -) 1 vial SQ ACHS [facility]; Protocol Last Admin: 05/22/20 16:46 Dose: Not Given Documented by: Lactic Acid (Lac-Hydrin 12) 1 applic TP DAILY PRN PRN Reason: Callous Last Admin: 05/21/20 14:57 Dose: 1 applic Documented by: Lactobacillus Acidophilus (Bacid -) 1 tab PO DAILY [facility] Last Admin: 05/22/20 10:04 Dose: 1 tab Documented by: Lisinopril (Prinivil) 20 mg PO DAILY [facility] Last Admin: 05/22/20 10:04 Dose: 20 mg Documented by: Morphine Sulfate (Ms Contin -) 15 mg PO BID [facility] Last Admin: 05/22/20 10:02 Dose: 15 mg Documented by: Multivitamins/Minerals/Vitamin C (Tab-A-Vit -) 1 tab PO DAILY [facility] Last Admin: 05/22/20 10:04 Dose: 1 tab Documented by: Oxycodone HCl (Roxicodone -) 7.5 mg PO Q6H PRN PRN Reason: PAIN SCALE 5-6 Last Admin: 05/22/20 17:42 Dose: 7.5 mg Documented by: Tamsulosin HCl (Flomax -) 0.4 mg PO DAILY@0830 [facility] Last Admin: 05/22/20 08:08 Dose: 0.4 mg Documented by: Zolpidem Tartrate (Ambien -) 10 mg PO HS PRN PRN Reason: INSOMNIA Last Admin: 05/21/20 23:10 Dose: 10 mg Documented by: - Objective Vital Signs: Vital Signs Temperature 98.3 F 05/22/20 19:29 Pulse Rate 84 05/22/20 19:29 Respiratory Rate 20 05/22/20 20:33 Blood Pressure 143/77 05/22/20 19:29 O2 Sat by Pulse Oximetry (%) 97 05/22/20 20:33 Constitutional: Yes: No Distress, Calm Cardiovascular: Yes: Regular Rate and Rhythm Respiratory: Yes: Regular Gastrointestinal: Yes: Normal Bowel Sounds, Soft, Abdomen, Obese Genitourinary: Yes: WNL Edema: RLE: 2+ Wound/Incision: Yes: Other (+erythema of foot slightly less/+edema, no tenderness, +mild warmth) Labs: CBC, BMP 05/22/20 06:55 05/22/20 06:55 Laboratory Last Values WBC 7.0 K/mm3 (4.0-10.0) 05/22/20 06:55 RBC 3.54 M/mm3 (4.00-5.60) L 05/22/20 06:55 Hgb 10.3 GM/dL (11.7-16.9) L 05/22/20 06:55 Hct 30.3 % (35.4-49) L 05/22/20 06:55 MCV 85.6 fl (80-96) 05/22/20 06:55 MCH 29.0 pg (25.7-33.7) 05/22/20 06:55 MCHC 33.9 g/dl (32.0-35.9) 05/22/20 06:55 RDW 13.6 % (11.9-15.9) 05/22/20 06:55 Plt Count 273 K/MM3 (134-434) 05/22/20 06:55 MPV 7.4 fl (7.5-11.1) L 05/22/20 06:55 Absolute Neuts (auto) 4.7 K/mm3 (1.5-8.0) 05/22/20 06:55 Neutrophils % 67.4 % (42.8-82.8) 05/22/20 06:55 Lymphocytes % 18.1 % (8-40) D 05/22/20 06:55 Monocytes % 10.6 % (3.8-10.2) H 05/22/20 06:55 Eosinophils % 3.3 % (0-4.5) 05/22/20 06:55 Basophils % 0.6 % (0-2.0) 05/22/20 06:55 Nucleated RBC % 0 % (0-0) 05/22/20 06:55 ESR 116 mm/hr (0-20) H 05/20/20 06:53 Sodium 133 mmol/L (136-145) L 05/22/20 06:55 Potassium 4.4 mmol/L (3.5-5.1) 05/22/20 06:55 Chloride 97 mmol/L (98-107) L 05/22/20 06:55 Carbon Dioxide 29 mmol/L (21-32) 05/22/20 06:55 Anion Gap 7 MMOL/L (8-16) L 05/22/20 06:55 BUN 14.6 mg/dL (7-18) 05/22/20 06:55 Creatinine 1.0 mg/dL (0.55-1.3) 05/22/20 06:55 Est GFR (CKD-EPI)AfAm 96.40 05/22/20 06:55 Est GFR (CKD-EPI)NonAf 83.18 05/22/20 06:55 POC Glucometer 111 UNITS (80-120) 05/22/20 16:36 Random Glucose 96 mg/dL (74-106) 05/22/20 06:55 Hemoglobin A1c % 6.3 % (4.2-6.3) 05/21/20 07:43 Calcium 8.5 mg/dL (8.5-10.1) 05/22/20 06:55 Magnesium 2.2 mg/dL (1.8-2.4) 05/21/20 07:43 Total Bilirubin 0.3 mg/dL (0.2-1) 05/22/20 06:55 AST 19 U/L (15-37) 05/22/20 06:55 ALT 28 U/L (13-61) 05/22/20 06:55 Alkaline Phosphatase 71 U/L (45-117) 05/22/20 06:55 C-Reactive Protein 9.6 MG/DL (0.00-0.3) H 05/20/20 06:53 Total Protein 6.4 g/dl (6.4-8.2) 05/22/20 06:55 Albumin 2.5 g/dl (3.4-5.0) L 05/22/20 06:55 Triglycerides 102 mg/dL (0-150) 05/20/20 06:53 Cholesterol 115 mg/dL (50-200) 05/20/20 06:53 Total LDL Cholesterol 65 mg/dL (5-100) 05/20/20 06:53 HDL Cholesterol 30 mg/dL (40-60) L 05/20/20 06:53 TSH 0.74 uIU/ml (0.358-3.74) 05/20/20 06:53 Urine Color Yellow 05/19/20 23:00 Urine Appearance Clear 05/19/20 23:00 Urine pH 8.0 (5.0-8.0) 05/19/20 23:00 Ur Specific [place] 1.010 (1.010-1.035) 05/19/20 23:00 Urine Protein 2+ (NEGATIVE) H 05/19/20 23:00 Urine Glucose (UA) Negative (NEGATIVE) 05/19/20 23:00 Urine Ketones Negative (NEGATIVE) 05/19/20 23:00 Urine Blood 1+ (NEGATIVE) H 05/19/20 23:00 Urine Nitrite Negative (NEGATIVE) 05/19/20 23:00 Urine Bilirubin Negative (NEGATIVE) 05/19/20 23:00 Urine Urobilinogen 0.2 mg/dL (0.2-1.0) 05/19/20 23:00 Ur Leukocyte Esterase Trace (NEGATIVE) 05/19/20 23:00 Urine WBC (Auto) 69 /uL (0-25.8) 05/19/20 23:00 Urine RBC (Auto) 65 /uL (0-23.9) 05/19/20 23:00 Urine Casts (Auto) 0 /uL (0-3.1) 05/19/20 23:00 U Epithel Cells (Auto) 29 /uL (0-25.1) 05/19/20 23:00 U Sm Round Cell (Auto) Negative 05/19/20 23:00 Urine Bacteria (Auto) 32 /uL (0-1359) 05/19/20 23:00 Vancomycin Pre-Dose 17.6 ug/ml (5-10) H 05/22/20 06:55 COVID-19 ([facility]) Not detected (Not Detected) 05/20/20 02:35 Microbiology 05/19/20 21:29 Blood - Peripheral Venous Blood Culture - Preliminary NO GROWTH OBTAINED AFTER 48 HOURS, INCUBATION TO CONTINUE FOR 3 DAYS. 05/19/20 21:29 Blood - Peripheral Venous Blood Culture - Preliminary NO GROWTH OBTAINED AFTER 48 HOURS, INCUBATION TO CONTINUE FOR 3 DAYS. 05/19/20 23:00 Urine - Urine Clean Catch Urine Culture - Final NO GROWTH OBTAINED Problem List - Problems (1) Cellulitis Code(s): L03.90 - CELLULITIS, UNSPECIFIED (2) Diabetes mellitus Code(s): E11.9 - TYPE 2 DIABETES MELLITUS WITHOUT COMPLICATIONS (3) Diabetic neuropathy Code(s): E11.40 - TYPE 2 DIABETES MELLITUS WITH DIABETIC NEUROPATHY, UNSP (4) Encounter for screening laboratory testing for COVID-19 virus Code(s): Z11.59 - ENCOUNTER FOR SCREENING FOR OTHER VIRAL DISEASES (5) HLD (hyperlipidemia) Code(s): E78.5 - HYPERLIPIDEMIA, UNSPECIFIED (6) HTN (hypertension) Code(s): I10 - ESSENTIAL (PRIMARY) HYPERTENSION (7) MARCOS (obstructive sleep apnea) Code(s): G47.33 - OBSTRUCTIVE SLEEP APNEA (ADULT) (PEDIATRIC) (8) Obesity (BMI 30.0-34.9) Code(s): E66.9 - OBESITY, UNSPECIFIED (9) PAD (peripheral artery disease) Code(s): I73.9 - PERIPHERAL VASCULAR DISEASE, UNSPECIFIED (10) Wound of foot Code(s): S91.309A - UNSPECIFIED OPEN WOUND, UNSPECIFIED FOOT, INITIAL ENCOUNTER Assessment/Plan RLE cellulitis Diabetic chronic Rt foot ulcer Peripheral neuropathy PAD s/p stent Obesity HTN MARCOS -- RLE edema, +erythema/warmth of forefoot still -- wbc trending down, pt afebrile -- continue current antibiotics for now, monitor renal function. Vancomycin trough 17 - therapeutic -- MRI +cellulitis with possible developing abscess, no OM. Podiatry following continue monitor for improvement
[2020-05-22] MEDS: ATORVASTATIN CA 80 MG TABLET (FP) PO SCH (21:46)
[2020-05-22] MEDS: ZOLPIDEM TARTRATE 5 MG TABLET PO PRN (21:51)
[2020-05-23] MEDS ORDERED: PIPERACILLIN/TAZOBACTAM 3.375 GM VIAL IVPB ONE ×2 (00:35→09:23)
[2020-05-23] MEDS ORDERED: DEXTROSE 5%-WATER - 50 ML IVPB ONE ×2 (00:35→09:23)
[2020-05-23] MEDS: PIPERACILLIN/TAZOB 3.375 GM 3.375 GM in DEXTROSE 5%-WATER - 50 ML IVPB SCH ×2 (01:04→09:49)
[2020-05-23] MEDS: INSULIN SLIDING SCALE (NOVOLOG) 1 VIAL SQ SCH ×2 (06:04→11:27)
[2020-05-23 08:19] LABS: BASO % 1.1 % (0-2.0); EOS % 2.9 % (0-4.5); HEMATOCRIT 33.8 % (35.4-49); HEMOGLOBIN 11.2 GM/dL (11.7-16.9); LYMPH % 13.9 % (8-40); MCHC 33.2 g/dl (32.0-35.9); MEAN CELL VOLUME 87.3 fl (80-96); MEAN PLT VOLUME 7.3 fl (7.5-11.1); MONO % 8.4 % (3.8-10.2); NEUT % 73.7 % (42.8-82.8); PLATELET COUNT 311 K/MM3 (134-434); RBC 3.86 M/mm3 (4.00-5.60); RDW 13.4 % (11.9-15.9); WHITE BLOOD COUNT 7.9 K/mm3 (4.0-10.0)
[2020-05-23] MEDS: TAMSULOSIN HCL 0.4 MG CAP PO SCH (08:31)
[2020-05-23] MEDS: oxyCODONE HCL 5 MG TABLET PO PRN (08:37)
[2020-05-23 08:43] VITALS: BP 152/77; PULSE 84; TEMP 97.9
[2020-05-23 08:57] LABS: ALBUMIN 2.9 g/dl (3.4-5.0); BILIRUBIN,TOTAL 0.7 mg/dL (0.2-1); BLOOD UREA NITROGEN 13.9 mg/dL (7-18); POTASSIUM 4.5 mmol/L (3.5-5.1); TOT PROT 7.2 g/dl (6.4-8.2)
[2020-05-23] MEDS: DULoxetine HCL 30 MG CAPSULE.DR PO SCH (09:47)
[2020-05-23] MEDS: LACTOBACILLUS ACIDOPHILUS 1 TABLET PO SCH (09:47)
[2020-05-23] MEDS: CLOPIDOGREL BISULFATE 75 MG TABLET (FP) PO SCH (09:47)
[2020-05-23] MEDS: ATENOLOL 50 MG TABLET (FP) PO SCH (09:48)
[2020-05-23] MEDS: HEPARIN NA (PORCINE) 5,000 UNITS/ML 1ML VIAL SQ SCH (09:48)
[2020-05-23] MEDS: amLODIPine BESYLATE 10 MG TABLET (FP) PO SCH (09:48)
[2020-05-23] MEDS: CYCLOBENZAPRINE HCL 10 MG TABLET (FP) PO SCH (09:48)
[2020-05-23] MEDS: MULTIVITAMINS (DAILY MVI) TABLET (FP) PO SCH (09:48)
[2020-05-23] MEDS: morphine SO4 SUSTAINED ACTING 15 MG TABLET.SA PO SCH (09:48)
[2020-05-23] MEDS: HYDROCHLOROTHIAZIDE 25 MG TABLET (FP) PO SCH (09:48)
[2020-05-23] MEDS: GABAPENTIN 400 MG CAPSULE PO SCH (09:48)
[2020-05-23] MEDS: LISINOPRIL 20 MG TABLET (FP) PO SCH (09:48)
[2020-05-23] MEDS: ASPIRIN 81 MG CHEWABLE TABLETS PO SCH (09:48)
[2020-05-23] MEDS: COLLAGENASE CLOSTRIDIUM HIST. 30 GRAMS TUBE TP SCH (10:28)
[2020-05-23] MEDS: VANCOMYCIN HCL 1,250 MG in DEXTROSE 5%-WATER - 250 ML IVPB SCH (10:28)
[2020-05-23] MEDS ORDERED: INSULIN (NOVOLOG) ASPART 100 UNITS/ML 10ML VIAL ONE (11:18)
--- NOTE | 2020-05-23 12:24 | PN ---
Progress Note, Physician History of Present Illness: stabole doing well leg looks better wound looks better - Current Medication List Current Medications: Active Medications Acetaminophen (Tylenol -) 325 mg PO Q6H PRN PRN Reason: PAIN SCALE 5-6 Last Admin: 05/22/20 17:39 Dose: 325 mg Documented by: Amlodipine Besylate (Norvasc -) 10 mg PO DAILY [facility] Last Admin: 05/23/20 09:48 Dose: 10 mg Documented by: Aspirin (Asa -) 81 mg PO DAILY [facility] Last Admin: 05/23/20 09:48 Dose: 81 mg Documented by: Atenolol (Tenormin -) 50 mg PO DAILY [facility] Last Admin: 05/23/20 09:48 Dose: 50 mg Documented by: Atorvastatin Calcium (Lipitor -) 80 mg PO HS [facility] Last Admin: 05/22/20 21:46 Dose: 80 mg Documented by: Clopidogrel Bisulfate (Plavix -) 75 mg PO DAILY [facility] Last Admin: 05/23/20 09:47 Dose: 75 mg Documented by: Collagenase (Santyl -) 1 applic TP DAILY [facility]; Protocol Last Admin: 05/23/20 10:28 Dose: Not Given Documented by: Cyclobenzaprine HCl (Flexeril -) 10 mg PO BID [facility] Last Admin: 05/23/20 09:48 Dose: 10 mg Documented by: Duloxetine HCl (Cymbalta -) 90 mg PO DAILY [facility] Last Admin: 05/23/20 09:47 Dose: 90 mg Documented by: Gabapentin (Neurontin -) 400 mg PO DAILY [facility] Last Admin: 05/23/20 09:48 Dose: 400 mg Documented by: Heparin Sodium (Porcine) (Heparin -) 5,000 unit SQ BID [facility] Last Admin: 05/23/20 09:48 Dose: Not Given Documented by: Hydrochlorothiazide (Hctz -) 25 mg PO DAILY [facility] Last Admin: 05/23/20 09:48 Dose: 25 mg Documented by: Piperacillin Sod/Tazobactam (Sod 3.375 gm/ Dextrose) 50 mls @ 100 mls/hr IVPB Q8H-IV [facility]; Protocol Last Admin: 05/23/20 09:49 Dose: 100 mls/hr Documented by: Vancomycin HCl 1,250 mg/ (Dextrose) 250 mls @ 166.667 mls/hr IVPB Q12H [facility]; Protocol Last Admin: 05/23/20 10:28 Dose: 166.667 mls/hr Documented by: Insulin Aspart (Novolog Vial Sliding Scale -) 1 vial SQ ACHS [facility]; Protocol Last Admin: 05/23/20 11:27 Dose: Not Given Documented by: Lactic Acid (Lac-Hydrin 12) 1 applic TP DAILY PRN PRN Reason: Callous Last Admin: 05/21/20 14:57 Dose: 1 applic Documented by: Lactobacillus Acidophilus (Bacid -) 1 tab PO DAILY [facility] Last Admin: 05/23/20 09:47 Dose: 1 tab Documented by: Lisinopril (Prinivil) 20 mg PO DAILY [facility] Last Admin: 05/23/20 09:48 Dose: 20 mg Documented by: Morphine Sulfate (Ms Contin -) 15 mg PO BID [facility] Last Admin: 05/23/20 09:48 Dose: 15 mg Documented by: Multivitamins/Minerals/Vitamin C (Tab-A-Vit -) 1 tab PO DAILY [facility] Last Admin: 05/23/20 09:48 Dose: 1 tab Documented by: Oxycodone HCl (Roxicodone -) 7.5 mg PO Q6H PRN PRN Reason: PAIN SCALE 5-6 Last Admin: 05/23/20 08:37 Dose: 7.5 mg Documented by: Tamsulosin HCl (Flomax -) 0.4 mg PO DAILY@0830 [facility] Last Admin: 05/23/20 08:31 Dose: 0.4 mg Documented by: Zolpidem Tartrate (Ambien -) 10 mg PO HS PRN PRN Reason: INSOMNIA Last Admin: 05/22/20 21:51 Dose: 10 mg Documented by: - Objective Vital Signs: Vital Signs Temperature 97.9 F 05/23/20 08:42 Pulse Rate 84 05/23/20 08:42 Respiratory Rate 20 05/23/20 08:42 Blood Pressure 152/77 05/23/20 08:42 O2 Sat by Pulse Oximetry (%) 96 05/23/20 09:00 Constitutional: Yes: No Distress, Calm Cardiovascular: Yes: S1, S2 Respiratory: Yes: Regular, CTA Bilaterally Gastrointestinal: Yes: Normal Bowel Sounds, Soft Musculoskeletal: Yes: WNL Extremities: Yes: Other Wound/Incision: Yes: Clean/Dry, Dressing Removed, Other Neurological: Yes: Alert, Oriented Psychiatric: Yes: Alert, Oriented Labs: CBC, BMP 05/23/20 07:55 05/23/20 07:55 Assessment/Plan Problem List - Problems (1) Cellulitis Code(s): L03.90 - CELLULITIS, UNSPECIFIED (2) Diabetes mellitus Code(s): E11.9 - TYPE 2 DIABETES MELLITUS WITHOUT COMPLICATIONS (3) Diabetic neuropathy Code(s): E11.40 - TYPE 2 DIABETES MELLITUS WITH DIABETIC NEUROPATHY, UNSP (4) Encounter for screening laboratory testing for COVID-19 virus Code(s): Z11.59 - ENCOUNTER FOR SCREENING FOR OTHER VIRAL DISEASES (5) HLD (hyperlipidemia) Code(s): E78.5 - HYPERLIPIDEMIA, UNSPECIFIED (6) HTN (hypertension) Code(s): I10 - ESSENTIAL (PRIMARY) HYPERTENSION (7) MARCOS (obstructive sleep apnea) Code(s): G47.33 - OBSTRUCTIVE SLEEP APNEA (ADULT) (PEDIATRIC) (8) Obesity (BMI 30.0-34.9) Code(s): E66.9 - OBESITY, UNSPECIFIED (9) PAD (peripheral artery disease) Code(s): I73.9 - PERIPHERAL VASCULAR DISEASE, UNSPECIFIED (10) Wound of foot Code(s): S91.309A - UNSPECIFIED OPEN WOUND, UNSPECIFIED FOOT, INITIAL ENCOUNTER Assessment/Plan RLE cellulitis Diabetic chronic Rt foot ulcer Peripheral neuropathy PAD s/p stent Obesity HTN MARCOS -- RLE edema, +erythema/warmth of forefoot still -- wbc normal plan can change to augmentin 875 mg po bid for 10 more days and levaquin 500 mg po bid for 5 more days follow in wound care take care of the legs rest as per the team
--- NOTE | 2020-05-23 14:23 | DS ---
Physical Exam: SUBJECTIVE: Patient seen and examined OBJECTIVE: Vital Signs Period Temp Pulse Resp BP Sys/Esteves Pulse Ox Last 24 Hr 97.6 F-98.3 F 77-84 20-20 143-153/73-77 96-97 PHYSICAL EXAM GENERAL: The patient is awake, alert, and fully oriented, in no acute distress. NECK: full range of motion, supple. LUNGS: Breath sounds equal, clear to auscultation bilaterally HEART: Regular rate and rhythm, S1, S2 ABDOMEN: Soft, nontender, nondistended, normoactive bowel sounds EXTREMITIES: palpable pulses, warm, well-perfused, no edema. RLE: +[id number] ulcer at the plantar side, no erythema, no drainage NEUROLOGICAL: Cranial nerves II through XII grossly intact. Normal speech PSYCH: Normal mood, normal affect. SKIN: Warm, dry, normal turgor LABS Laboratory Results - last 24 hr 05/22/20 05/22/20 05/23/20 16:36 21:44 05:30 WBC RBC Hgb Hct MCV MCH MCHC RDW Plt Count MPV Absolute Neuts (auto) Neutrophils % Lymphocytes % Monocytes % Eosinophils % Basophils % Nucleated RBC % Sodium Potassium Chloride Carbon Dioxide Anion Gap BUN Creatinine Est GFR (CKD-EPI)AfAm Est GFR (CKD-EPI)NonAf POC Glucometer 111 125 96 Random Glucose Calcium Total Bilirubin AST ALT Alkaline Phosphatase Total Protein Albumin Vancomycin Pre-Dose 05/23/20 05/23/20 05/23/20 07:55 07:55 07:55 WBC 7.9 RBC 3.86 L Hgb 11.2 L Hct 33.8 L MCV 87.3 MCH 29.0 MCHC 33.2 RDW 13.4 Plt Count 311 MPV 7.3 L Absolute Neuts (auto) 5.8 Neutrophils % 73.7 Lymphocytes % 13.9 D Monocytes % 8.4 Eosinophils % 2.9 Basophils % 1.1 Nucleated RBC % 0 Sodium 133 L Potassium 4.5 Chloride 97 L Carbon Dioxide 30 Anion Gap 7 L BUN 13.9 Creatinine 1.0 Est GFR (CKD-EPI)AfAm 96.40 Est GFR (CKD-EPI)NonAf 83.18 POC Glucometer Random Glucose 111 H Calcium 9.0 Total Bilirubin 0.7 AST 22 ALT 26 Alkaline Phosphatase 84 Total Protein 7.2 Albumin 2.9 L Vancomycin Pre-Dose 11.4 H 05/23/20 11:25 WBC RBC Hgb Hct MCV MCH MCHC RDW Plt Count MPV Absolute Neuts (auto) Neutrophils % Lymphocytes % Monocytes % Eosinophils % Basophils % Nucleated RBC % Sodium Potassium Chloride Carbon Dioxide Anion Gap BUN Creatinine Est GFR (CKD-EPI)AfAm Est GFR (CKD-EPI)NonAf POC Glucometer 172 Random Glucose Calcium Total Bilirubin AST ALT Alkaline Phosphatase Total Protein Albumin Vancomycin Pre-Dose HOSPITAL COURSE: Date of Admission:05/19/20 Date of Discharge: 05/23/20 Patient is a 55 y/o male with a significant medical history of DM, PAD s/p stent, HTN, HLD, Diabetic Neuropathy. Who presents to the ED sent in by his teenage program director Dr. Cantu for wound infection/cellulitis on right foot. #RLE cellulitis -+Leukocytosis, ESR elevated, non-draining -Xray right foot r/o subcutaneous air. -MRI of lower extremity 03/22/2020 report- Cellulitis, neg osteomyelitis or abscess. -Completed 4 days of Zosyn -Switched to augmentin 875 mg po bid for 10 more days and levaquin 500 mg po bid for 5 more days on discharge -blood cultures negative -Podiatry (Dr. Cantu) consulted. Recommendations appreciated. -Vascular (Dr. Pepe) consulted. REcommendations appreciated. -palpable PT pulse. -no need for vascular intervention. -ID (Dr. rogers) consulted. Recommendations appreciated. Minutes to complete discharge: 36 Discharge Summary Problems reviewed: Yes Reason For Visit: DIABETIC ULCER OF LEFT FOOT, CELLULITIS AND Current Active Problems BPH (benign prostatic hyperplasia) (Acute) Cellulitis (Acute) Cellulitis and abscess of foot (Acute) Diabetes mellitus (Acute) Diabetic foot infection (Acute) Diabetic neuropathy (Acute) Encounter for screening laboratory testing for COVID-19 virus (Acute) HLD (hyperlipidemia) (Acute) HTN (hypertension) (Acute) MARCOS (obstructive sleep apnea) (Acute) Obesity (BMI 30.0-34.9) (Acute) PAD (peripheral artery disease) (Acute) Wound of foot (Acute) Condition: Improved - Instructions Diet, Activity, Other Instructions: Your visit You were admitted to the hospital because you had an infection on your right foot. You were seen by the foot doctor and infectious disease doctor. You were treated with IV antibiotics. An MRI was done which did not show any infection in the bone. You are now cleared for discharge to continue antibiotics orally as instructed below. Please follow up with your primary care doctor and foot doctor. Medications Please take the following medications as prescribed: 1. Augmentin 875mg twice a days for 10 more days starting tonight 2. Levaquin 500mg twice a day for 5 more days starting tonight Please continue your other home medications Follow up Please follow up with your primary care doctor within 1 week. Please follow up with your foot doctor (Dr. Cantu) in 1-2 weeks Please follow up with the infectious disease doctor (Dr. Rogers) in 2 weeks. A referral has been provided. Additional info Please call 911 or go to the ED if with any worsening fevers, chills, headache, dizziness, chest pain, shortness of breath, belly pain, diarrhea, or any new concerns noted. Referrals: Liborio Murillo [Primary Care Provider] - Nina Rogers MD [Staff Physician] - Edmond Cantu DPM [Staff Physician] - Disposition: HOME - Home Medications Comprehensive Discharge Medication List: Ambulatory Orders Amlodipine Besylate 10 mg PO DAILY 11/23/19 Aspirin [ASA -] 81 mg PO DAILY 11/23/19 Atenolol [Tenormin -] 50 mg PO DAILY 11/23/19 Atorvastatin Ca [Lipitor] 80 mg PO DAILY 11/23/19 Diazepam [Valium] 10 mg PO Q4H PRN 11/23/19 Dulaglutide [Trulicity] 0.5 ml SQ WEEKLY 11/23/19 Duloxetine HCl [Cymbalta -] 90 mg PO DAILY 11/23/19 Furosemide [Lasix -] 20 mg PO DAILY PRN 11/23/19 Insulin Degludec [Tresiba Flextouch U-200] 14 unit SQ DAILY 11/23/19 Lisinopril/Hydrochlorothiazide [Lisinopril-Hctz 20-25 mg Tab] 1 tab PO DAILY 11/23/19 Morphine Sulfate 10 mg PO BID 11/23/19 Potassium Chloride 1 tab PO DAILY 11/23/19 Tadalafil [Cialis] 20 mg PO HS PRN 11/23/19 Zolpidem Tartrate 10 mg PO HS PRN 11/23/19 metFORMIN HCL [Metformin HCl ER] 2 tab PO DAILY 11/23/19 Clopidogrel Bisulfate [Plavix -] 75 mg PO DAILY 12/31/19 Gabapentin 400 mg PO DAILY 12/31/19 Cyclobenzaprine HCl [Flexeril -] 10 mg PO BID 05/20/20 L.acidoph,Paracasei, B.lactis [Probiotic] 1 each PO DAILY 05/20/20 Multivitamin [Multivitamins] 1 each PO DAILY 05/20/20 Oxycodone HCl/Acetaminophen [Endocet 7.5-325 mg Tablet] 1 each PO Q6H 05/20/20 Tamsulosin HCl [Flomax] 0.4 mg PO HS 05/20/20 Ammonium Lactate Lotion [Lac-Hydrin 12] 1 applic TP DAILY PRN bottle 05/23/20 Amoxicillin/Potassium Clav [Augmentin 875-125 Tablet] 1 each PO BID #20 tablet 05/23/20 Collagenase Clostridium Hist. [Santyl -] 1 applic TP DAILY tube 05/23/20 Levofloxacin [Levaquin] 500 mg PO BID #10 tablet 05/23/20 This patient is new to me today: No Emergency Visit: Yes ED Registration Date: 05/19/20 Care time: The patient presented to the Emergency Department on the above date and was hospitalized for further evaluation of their emergent condition. Critical Care patient: No - Discharge Referral Referred to [facility] Med [facility].: No ATTENDING PHYSICIAN STATEMENT I saw and evaluated the patient. I reviewed the resident's note and discussed the case with the resident. I agree with the resident's findings and plan as documented. SUBJECTIVE: OBJECTIVE: ASSESSMENT AND PLAN:
== END 2020-05-23 14:54 | disposition home or self-care (01) | DRG 380 ==
LOC: JER 19:20 → JERBED 23:03 → J6WEST-2 05-20 04:32 → J6S 05-20 12:18
PROVIDERS: ADMIT Internal Medicine
DX: E11.628 Type 2 diabetes mellitus with other skin complications (principal); L03.115 Cellulitis of right lower limb; E78.5 Hyperlipidemia, unspecified; I10 Essential (primary) hypertension; N40.0 Benign prostatic hyperplasia without lower urinary tract symptoms; G47.33 Obstructive sleep apnea (adult) (pediatric); D72.829 Elevated white blood cell count, unspecified; L02.611 Cutaneous abscess of right foot; E11.40 Type 2 diabetes mellitus with diabetic neuropathy, unspecified; L97.519 Non-pressure chronic ulcer of other part of right foot with unspecified severity; M54.9 Dorsalgia, unspecified; E11.51 Type 2 diabetes mellitus with diabetic peripheral angiopathy without gangrene; E66.9 Obesity, unspecified; Z68.34 Body mass index [BMI] 34.0-34.9, adult; Z11.59 Encounter for screening for other viral diseases
CPT/HCPCS: 36415; 71046-TC-FY; 73630-TC-RT-FY; 73718-TC-RT; 80053; 80061; 81003; 82962; 83036; 83721; 83735; 84443; 85025; 85651; 86140; 87040; 87086; 93005; 93010; 94660; 99285-25; G0463-25; G0480; J1644; U0003